=== PATIENT | male | born 1935 | race Caucasian/White ===

== ENCOUNTER 2017-01-15 07:35 | Day surgery (SDC) | payer OTHER ==
[2017-01-15] MEDS ORDERED: D5 LR 1000 ML 1,000 ML IV ONE (07:46)
[2017-01-15] MEDS ORDERED: DIPRIVAN VIAL 20 ML ONE (09:23)
[2017-01-15 10:07] VITALS: BP 123/67
== END 2017-01-15 09:05 | disposition home or self-care (01) ==
LOC: SURG1 07:35
PROVIDERS: ATTEND Internal Medicine Gastroenterology
PROC: 0DJD8ZZ Inspection of Lower Intestinal Tract, Via Natural or Artificial Opening Endoscopic (ICD-10-PCS; principal; 2017-01-15 07:30)
DX: K57.30 Diverticulosis of large intestine without perforation or abscess without bleeding (principal); K64.8 Other hemorrhoids; Z85.038 Personal history of other malignant neoplasm of large intestine; Z80.0 Family history of malignant neoplasm of digestive organs
CPT/HCPCS: 99100; A4217; J3490; J7120

== ENCOUNTER 2017-03-01 18:44 | Emergency (ER) | payer OTHER ==
[2017-03-01 18:59] VITALS: BMI 24.6
[2017-03-01 19:23] VITALS: BP 148/70
--- NOTE | 2017-03-01 19:29 | DR.GENAD ---
HPI - PCP Primary Care Physician: Vicente - HPI Comment HPI Comment: As below; he's used two enemas today without relief; no n/v; he's had persistent, intermittent problem with constipation since having partial colectomy years ago but usually resolves with enemas every 3 days or so. - Complaint/Symptoms Chief Complaint:: "I got constipation i got it so bad i just cant move it. Today is 4 days since I had a bowel movement. I hurt all in the lower part of my stomach." - Source History Provided: Patient - Mode of Arrival Mode of Arrival: Ambulatory - Timing Onset of Chief Complaint: 02/26/17 PMH - PMH Past Medical History: Yes Past Medical History: Anxiety, GERD Past Medical History Comment: chronic constipation Past Surgical History: Yes Surgical History: Appendectomy, Bowel Resection, Ortho Surgery Past Surgical History Comment: Stent x1 2016 - Family History History of Family Medical Conditions: No - Social History Alcohol Use: None Do you use any recreational Drugs:: No Lives With: Family Lives Where: Home - infectious screening Have you traveled outside the country in the last 6 months?: No ROS - Review of Systems Constitutional: No Symptoms Reported Respiratoy: No Symptoms Reported Cardiovascular: No Symptoms Reported Gastrointestinal/Abdominal: See HPI Genitourinary: No Symptoms Reported Neurological: No Symptoms Reported PE - Vital Signs Vitals: Temperature 97.9 F Pulse Rate 89 Respiratory Rate 18 Blood Pressure [Right Arm] 150/74 Blood Pressure [Left Arm] 116/70 Blood Pressure 148/70 O2 Sat by Pulse Oximetry 98 - General Limitations: No Limitations General Appearance: Alert, In No Apparent Distress - Neck Neck Exam: Normal Inspection - Chest Chest Inspection: Normal Inspection - Respiratory Respiratory Exam: Normal Lung Sounds Bilat Respiratory Exam: Bilateral Clear to Auscultation - Cardiovascular Cardiovascular Exam: Regular Rate, Normal Rhythm - Abdominal Exam Abdominal Exam: Soft, Tenderness (rlq/suprapubic region) Course - Reevaluation 1st: Improved (he had a large bm while in ER) ROR - XRAY XRAY Interpreted by: Radiologist (mod amt stool; no free air/dilated loops of ari) - Diagnosis Discharge Problem: Constipation Qualifiers: Constipation type: chronic idiopathic constipation Qualified Code(s): K59.04 - Chronic idiopathic constipation - Discharge Plan Disposition: 01 HOME, SELF-CARE Condition: Stable - Follow ups/Referrals Follow ups/Referrals: [facility],None [Primary Care Provider] - 3 days - Instructions Instructions: Constipation, Adult Additional Instructions: push fluids increase exercise
--- NOTE | 2017-03-01 20:03 | RAD ---
Acute abdomen series-three views with chest, supine and upright abdomen Indication: Abdominal pain and constipation. Comparison: July 19, 2015 CT. Findings: Chest radiograph shows cardiomegaly without other acute abnormality. Moderate gas is stool seen in the colon. No dilated loop of small bowel seen. Numerous clips project over the abdomen. Impression: Moderate stool in the colon suggests constipation without gross free air, pneumatosis or dilated loop of small bowel. THE AVAILABILITY OF THE REPORT AND FINDINGS WERE COMMUNICATED TO Dr. Seymour by Dr. Sterling on March 01, 2017 at 8:00 p.m. Reported By:
[2017-03-01] MEDS ORDERED: CITROMA PO ONE (20:12)
[2017-03-01] MEDS ORDERED: CITROMA ONE (20:15)
== END 2017-03-01 20:29 | disposition home or self-care (01) ==
LOC: ER 18:44
DX: K59.04 Chronic idiopathic constipation (principal)
CPT/HCPCS: 74022; 99282

== ENCOUNTER → 2017-09-22 | Outpatient (CLI) | payer OTHER ==
--- NOTE | 2017-09-22 17:18 | CT ---
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 COMPARISON: CT head 06/25/2016. TECHNIQUE: Multiple, non-contrasted axial CT images were obtained from the skull base to the cranial vertex. Coronal and sagittal reformats were performed. FINDINGS: There are no abnormal intra- or extra-axial fluid collections, midline shift, or mass effec t. Chen-white differentiation is normal. Partially empty sella. Global cortical involutional changes are present that are advanced for the patient's stated age. The ventricular system is enlarged but co mmensurate with the degree of sulcal prominence. Periventricular and supraventricular white matter hy podensity is present that is nonspecific in appearance, but most likely to represent microvascular is chemic changes. Atherosclerotic vascular calcification is present within the carotid siphons and dist al vertebral arteries. Imaged paranasal sinuses and mastoid air cells are clear. Debris in the tympanic cavities, likely cer umen. Bilateral lens implants. IMPRESSION: 1. No definite evidence of an acute intracranial process. If clinical concern persists for acute stro ke, consider MRI/MRA brain with contrast. 2. Moderate microvascular white matter ischemic changes, with associated volume loss. Reported By:
== END ==
LOC: RAD 16:34
PROVIDERS: ATTEND Internal Medicine
DX: R44.1 Visual hallucinations (principal); R41.82 Altered mental status, unspecified
CPT/HCPCS: 70450

== ENCOUNTER 2018-10-11 14:44 | Inpatient (IN) ==
[2018-10-11 15:30] VITALS: BMI 23.3
[2018-10-11] MEDS ORDERED: ZOFRAN INJ 4 MG VIAL IVP PRN (15:38)
[2018-10-11] MEDS ORDERED: NS 1/2 1000 ML IV 1,000 ML IV ONE (15:42)
[2018-10-11] MEDS: TYLENOL 325 MG TAB PO PRN ×2 (15:46→22:39)
[2018-10-11] MEDS: NS 1/2 1000 ML IV 1,000 ML IV SCH (15:46)
[2018-10-11] MEDS: FORTAZ or TAZICEF VIAL INJ IVP SCH ×2 (15:50→21:56)
[2018-10-11 16:02] LABS: BASOPHILS % (AUTO) 0.2 % (0.2-1.0); HEMATOCRIT 33.7 % (42.0-54.0); HEMOGLOBIN 11.5 g/dL (13.5-18.0); LYMPHOCYTES # (AUTO) 0.2 X10^3/uL (1.3-2.9); LYMPHOCYTES % (AUTO) 1.9 % (21.0-51.0); MEAN CORPUSCULAR HEMOGLOBIN 30.5 pg (27.0-34.0); MEAN CORPUSCULAR HGB CONC 34.2 g/dL (33.0-35.0); MEAN CORPUSCULAR VOLUME 89.1 fL (80.0-100.0); MEAN PLATELET VOLUME 8.3 fL (7.4-11.0); MONOCYTES # (AUTO) 0.7 x10^3/uL (0.3-0.8); MONOCYTES % (AUTO) 5.7 % (0.0-13.0); NEUTROPHILS # (AUTO) 11.6 x10^3/uL (2.2-4.8); NEUTROPHILS % (AUTO) 92.2 % (42.0-75.0); PLATELET COUNT 165 X10^3/uL (150.0-450.0); RED BLOOD COUNT 3.78 X10^6/uL (4.7-6.0); RED CELL DISTRIBUTION WIDTH 14.2 % (11.6-16.5); WHITE BLOOD COUNT 12.5 X10^3/uL (3.6-10.0)
[2018-10-11 16:14] LABS: ALANINE AMINOTRANSFERASE 23 Units/L (12-78); ALBUMIN 3.5 g/dL (3.4-5.0); ALKALINE PHOSPHATASE 77 Units/L (46-116); ASPARTATE AMINO TRANSFERASE 18 Units/L (15-37); BLOOD UREA NITROGEN 30 mg/dL (7-18); CALCIUM 8.8 mg/dL (8.5-10.1); CARBON DIOXIDE 22.9 mmol/L (21-32); CHLORIDE 98 mmol/L (98-107); COR NA(FOR HYPERGLY) 139 mmol/L (136-145); CREATININE 1.82 mg/dL (0.70-1.30); SODIUM 135 mmol/L (136-145); TOTAL PROTEIN 7.7 g/dL (6.4-8.2); eGFR NON BLACK RACES 38 (>60)
[2018-10-11] MEDS: DUONEB 0.5 MG/3 MG NEB SCH ×2 (16:20→20:22)
[2018-10-11 16:22] LABS: PLATELET MORPHOLOGY COMMENT NORMAL (NORMAL)
--- NOTE | 2018-10-11 16:26 | RAD ---
Chest PA and lateral Indication: Pneumonia Comparison: 07/18/2018 Findings: There is no pneumothorax or effusion. There is no consolidation. Heart size is enlarged. Impression: Cardiomegaly and chronic lung change without other acute chest process. Reported By:
[2018-10-11] MEDS ORDERED: SALINE 3% 15 ML NEB TX NEB ONE (16:39)
[2018-10-11] MEDS ORDERED: PULMICORT NEB TX 0.5 MG NEB SCH (21:00)
[2018-10-11] MEDS ORDERED: RESTORIL CAP 15 MG PO PRN (21:32)
[2018-10-11] MEDS ORDERED: NS 100 ML IV + SPIKE MINIBAG* 100 ML IV ONE (21:55)
[2018-10-12] MEDS: DUONEB 0.5 MG/3 MG NEB SCH ×7 (00:58→21:14)
[2018-10-12] MEDS: TYLENOL 325 MG TAB PO PRN ×2 (02:24→15:48)
[2018-10-12] MEDS ORDERED: NS 1/2 1000 ML IV 0 ML IV ONE (05:44)
[2018-10-12] MEDS ORDERED: NS 100 ML IV + SPIKE MINIBAG* 100 ML IV ONE (05:45)
[2018-10-12] MEDS: FORTAZ or TAZICEF VIAL INJ IVP SCH ×3 (05:51→21:38)
[2018-10-12] MEDS: NS 1/2 1000 ML IV 1,000 ML IV SCH ×3 (05:52→20:06)
[2018-10-12 06:20] LABS: BASOPHILS % (AUTO) 0.3 % (0.2-1.0); HEMOGLOBIN 9.8 g/dL (13.5-18.0); LYMPHOCYTES # (AUTO) 0.4 X10^3/uL (1.3-2.9); LYMPHOCYTES % (AUTO) 5.2 % (21.0-51.0); MEAN CORPUSCULAR VOLUME 88.7 fL (80.0-100.0); MEAN PLATELET VOLUME 8.6 fL (7.4-11.0); MONOCYTES # (AUTO) 0.8 x10^3/uL (0.3-0.8); MONOCYTES % (AUTO) 9.5 % (0.0-13.0); NEUTROPHILS # (AUTO) 6.9 x10^3/uL (2.2-4.8); PLATELET COUNT 133 X10^3/uL (150.0-450.0); RED BLOOD COUNT 3.16 X10^6/uL (4.7-6.0); RED CELL DISTRIBUTION WIDTH 14.4 % (11.6-16.5); WHITE BLOOD COUNT 8.1 X10^3/uL (3.6-10.0)
[2018-10-12 06:35] LABS: ALANINE AMINOTRANSFERASE 15 Units/L (12-78); ALBUMIN 2.8 g/dL (3.4-5.0); ALKALINE PHOSPHATASE 61 Units/L (46-116); ASPARTATE AMINO TRANSFERASE 18 Units/L (15-37); BLOOD UREA NITROGEN 24 mg/dL (7-18); CALCIUM 8.2 mg/dL (8.5-10.1); CARBON DIOXIDE 21.4 mmol/L (21-32); CHLORIDE 99 mmol/L (98-107); COR CA(FOR HYPOALB) 9.2 mg/dL (8.5-10.1); COR NA(FOR HYPERGLY) 137 mmol/L (136-145); CREATININE 1.43 mg/dL (0.70-1.30); SODIUM 133 mmol/L (136-145); TOTAL PROTEIN 6.5 g/dL (6.4-8.2); eGFR NON BLACK RACES 50 (>60)
--- NOTE | 2018-10-12 07:05 | RAD ---
HISTORY: Fever, shortness of breath Study: Chest AP portable Comparison: 10/11/2018, 07/18/2018 Findings: The heart is enlarged. No congestive heart failure is noted. The lungs are hypo inflated but free of acute alveolar infiltrates. Mild chronic lung changes are present. The bony thorax is unremarkable. IMPRESSION: Mild cardiomegaly without congestive heart failure Hypo inflation Mild chronic interstitial lung changes Reported By:
[2018-10-12] MEDS: PULMICORT NEB TX 0.5 MG NEB SCH ×2 (09:11→21:16)
[2018-10-12] MEDS: NORCO 7.5/325 MG TAB PO SCH ×3 (10:52→21:49)
[2018-10-12] MEDS ORDERED: TOPROL XL PO SCH (11:00)
[2018-10-12] MEDS ORDERED: PLAVIX PO SCH (11:00)
[2018-10-12] MEDS ORDERED: AMARYL TAB 4 MG PO SCH (11:00)
[2018-10-12] MEDS: HumuLIN R SUBCUT PRN ×3 (11:03→21:41)
[2018-10-12] MEDS: ATIVAN TAB 0.5 MG PO SCH ×2 (11:04→21:39)
[2018-10-12] MEDS: PROzac PO SCH (11:04)
[2018-10-12] MEDS: AMARYL TAB 4 MG PO SCH (11:16)
[2018-10-12] MEDS ORDERED: NexIUM PO SCH (13:00)
[2018-10-12] MEDS: NexIUM PO SCH (13:30)
[2018-10-12] MEDS ORDERED: NS 1/2 1000 ML IV 1,000 ML IV ONE ×2 (15:46→19:56)
[2018-10-12] MEDS: TORADOL 15 MG VIAL IVP PRN (17:32)
[2018-10-12] MEDS ORDERED: SNACK - Diabetic Appropriate PO SCH (20:00)
[2018-10-12] MEDS: SNACK - Diabetic Appropriate PO SCH (20:38)
[2018-10-12] MEDS ORDERED: MICRO K EXTEN CAP 10 MEQ PO PRN (20:53)
[2018-10-12] MEDS ORDERED: K-RIDER 10 MEQ/NS 100 ML 10 MEQ/100 ML BAG IV PRN (20:53)
[2018-10-12] MEDS ORDERED: KLOR-CON PO PRN (20:53)
[2018-10-12] MEDS ORDERED: POTASSIUM CHLORIDE LIQ 20 MEQ UDC PO PRN (20:53)
[2018-10-12] MEDS ORDERED: K-DUR TAB 20 MEQ PO PRN (20:53)
[2018-10-12] MEDS ORDERED: POTASSIUM CHL 60 MEQ/NS 0.45% 500 ML IV PRN (20:53)
[2018-10-12] MEDS ORDERED: POTASSIUM CHL 40 MEQ/NS 0.45% 500 ML IV PRN (20:53)
[2018-10-12] MEDS: PLAVIX PO SCH (21:38)
[2018-10-12] MEDS: MAGNESIUM SULFATE 1 GRAM/100 mL PREMIX 1 GM/100 ML BAG IV PRN ×2 (21:38→23:01)
[2018-10-12] MEDS: ZOCOR TAB 20 MG PO SCH (21:38)
[2018-10-12] MEDS: TOPROL XL PO SCH (21:40)
[2018-10-13] MEDS: DUONEB 0.5 MG/3 MG NEB SCH ×7 (01:21→20:26)
[2018-10-13] MEDS: MAGNESIUM SULFATE 1 GRAM/100 mL PREMIX 1 GM/100 ML BAG IV PRN ×2 (01:23→02:53)
[2018-10-13] MEDS: FORTAZ or TAZICEF VIAL INJ IVP SCH ×3 (06:02→21:12)
[2018-10-13] MEDS: NORCO 7.5/325 MG TAB PO SCH ×2 (06:21→13:44)
[2018-10-13 06:41] LABS: BASOPHILS % (AUTO) 0.3 % (0.2-1.0); EOSINOPHILS # (AUTO) 0.2 x10^3/uL (0.0-0.2); EOSINOPHILS % (AUTO) 2.3 % (0.9-2.9); HEMATOCRIT 32.8 % (42.0-54.0); HEMOGLOBIN 11.1 g/dL (13.5-18.0); LYMPHOCYTES # (AUTO) 0.6 X10^3/uL (1.3-2.9); LYMPHOCYTES % (AUTO) 8.6 % (21.0-51.0); MEAN CORPUSCULAR HEMOGLOBIN 30.3 pg (27.0-34.0); MEAN CORPUSCULAR HGB CONC 33.8 g/dL (33.0-35.0); MEAN CORPUSCULAR VOLUME 89.5 fL (80.0-100.0); MEAN PLATELET VOLUME 8.9 fL (7.4-11.0); MONOCYTES # (AUTO) 0.8 x10^3/uL (0.3-0.8); NEUTROPHILS # (AUTO) 5.1 x10^3/uL (2.2-4.8); NEUTROPHILS % (AUTO) 76.8 % (42.0-75.0); PLATELET COUNT 161 X10^3/uL (150.0-450.0); RED BLOOD COUNT 3.67 X10^6/uL (4.7-6.0); RED CELL DISTRIBUTION WIDTH 14.1 % (11.6-16.5); WHITE BLOOD COUNT 6.7 X10^3/uL (3.6-10.0)
[2018-10-13 07:05] LABS: ALANINE AMINOTRANSFERASE 24 Units/L (12-78); ALBUMIN 2.9 g/dL (3.4-5.0); ALKALINE PHOSPHATASE 71 Units/L (46-116); ASPARTATE AMINO TRANSFERASE 26 Units/L (15-37); BLOOD UREA NITROGEN 17 mg/dL (7-18); CALCIUM 8.4 mg/dL (8.5-10.1); CARBON DIOXIDE 24.1 mmol/L (21-32); CHLORIDE 99 mmol/L (98-107); COR CA(FOR HYPOALB) 9.3 mg/dL (8.5-10.1); COR NA(FOR HYPERGLY) 136 mmol/L (136-145); SODIUM 134 mmol/L (136-145); TOTAL PROTEIN 7.2 g/dL (6.4-8.2); eGFR NON BLACK RACES 56 (>60)
--- NOTE | 2018-10-13 07:17 | RAD ---
HISTORY: Shortness of breath Study: Chest AP portable Comparison: 10/12/2018 Findings: The heart remains enlarged. No congestive heart failure is noted. The lungs remain hypo inflated but free of acute infiltrates. Mild chronic lung changes are present. No pleural effusions are identified. The bony thorax is unremarkable. IMPRESSION: Mild cardiomegaly without congestive heart failure Hypo inflation Minimal chronic interstitial lung changes Reported By:
[2018-10-13] MEDS: TYLENOL 325 MG TAB PO PRN ×2 (08:25→21:08)
[2018-10-13] MEDS: PROzac PO SCH (08:36)
[2018-10-13] MEDS: NexIUM PO SCH (08:37)
[2018-10-13] MEDS: ATIVAN TAB 0.5 MG PO SCH ×2 (08:37→21:10)
[2018-10-13] MEDS: AMARYL TAB 4 MG PO SCH (08:37)
[2018-10-13] MEDS: PULMICORT NEB TX 0.5 MG NEB SCH ×2 (09:14→20:26)
[2018-10-13] MEDS: NS 1/2 1000 ML IV 1,000 ML IV SCH ×2 (11:38→13:49)
[2018-10-13] MEDS: HumuLIN R SUBCUT PRN ×2 (11:38→21:12)
[2018-10-13 12:09] LABS: BILIRUBIN,URINE NEGATIVE (NEGATIVE); BLOOD/HEMOGLOBIN,URINE 2+ (NEGATIVE); GLUCOSE, URINE 3+ (NEGATIVE); KETONES,URINE NEGATIVE (NEGATIVE); LEUKOCYTE ESTERASE ,URINE NEGATIVE (NEGATIVE); NITRITES,URINE NEGATIVE (NEGATIVE); PROTEIN,URINE 2+ (NEGATIVE); UROBILINOGEN,URINE NORMAL (NORMAL)
[2018-10-13 12:10] LABS: APPEARANCE,URINE CLEAR (CLEAR); COLOR,URINE YELLOW (YELLOW)
[2018-10-13 12:15] LABS: MUCUS,URINE FEW /HPF (NEGATIVE); RBC,URINE 0-2 /HPF (NONE SEEN)
[2018-10-13] MEDS ORDERED: NS 1/2 1000 ML IV 1,000 ML IV ONE (13:48)
--- NOTE | 2018-10-13 14:53 | RAD ---
History: Nausea and vomiting and fever Study: KUB Comparison: July 18, 2018 Findings: There are multiple surgical clips in the pelvis and in the right upper quadrant. The bowel gas pattern is unremarkable. No abnormal calcification is demonstrated. No acute bony abnormality is suggested. Impression: No acute disease demonstrated Reported By:
[2018-10-13] MEDS ORDERED: NS 100 ML IV + SPIKE MINIBAG* 100 ML IV ONE (21:00)
--- NOTE | 2018-10-13 21:00 | DR.UPDATE ---
H&P Update History and Physical Update: WAS SEEN IN THE OFFICE TODAY. A H&P WAS COMPLETED PRIOR TO ADMISSION. PATIENT HAS BEEN SEEN AND EXAMINED WITH NO CHANGES NOTED TO H&P. Changes noted: NO Yes with the following:
[2018-10-13] MEDS: TOPROL XL PO SCH (21:09)
[2018-10-13] MEDS: SNACK - Diabetic Appropriate PO SCH (21:10)
[2018-10-13] MEDS: PLAVIX PO SCH (21:11)
[2018-10-13] MEDS: ZOCOR TAB 20 MG PO SCH (21:11)
--- NOTE | 2018-10-13 21:27 | PCM.PROG ---
Progress Note - Progress Note for Day of Date of Exam: 10/12/18 - Subjective Subjective: WAS ADMITTED FOR FEVER, NAUSEA/VOMITING, AND ALTERED MENTAL STATUS. TODAY, HE IS ALERT AND ORIENTED, LYING IN BED ON MORNING ROUNDS. HE CONTINUES WITH COMPLAINTS OF NAUSEA AND WEAKNESS. HE HAS RAN A FEVER THROUGHOUT THE NIGHT. ON EXAMINATION, HEART IS REGULAR IN RATE AND RHYTHM. B ILATERAL LUNGS ARE NOTED WITH DIMINISHED LUNG SOUNDS THROUGHOUT. ABDOMEN IS ROUND, SOFT, AND NON-TENDER WITH NORMAL BOWEL SOUNDS NOTED IN ALL QUADRANTS. HIS VITALS THIS MORNING ARE 99.4-75-23-96%-130/58. LABS WERE OBTAINED. ABNORMAL LAB VALUES INCLUDE THE FOLLOWING: WBC 8.1, RBC 3.16, HGB 9.8, HCT 28.0, SODIUM 133, BUN 24, CREATININE 1.43, GLUCOSE 269, CALCIUM 8.2, MAGNESIUM 1.3, ALBUMIN 2.8. INFLUENZA ON ADMISSION NEGATIVE. BLOOD CULTURES ARE PENDING. A CHEST XRAY WAS OBTAINED TODAY AND REVEALED: Mild cardiomegaly without congestive heart failure. Hypo inflation. Mild chronic interstitial lung changes. HE IS CURRENTLY RECEIVING NORMAL SALINE AT 75ML/HR AND FORTAZ 1GM IV Q8H. HE IS ALSO RECEIVING RESPIRATORY TREATMENTS AND SUPPLEMENTAL OXYGEN FOR COMPLAINTS OF SHORTNESS OF BREATH. WE WILL CONTINUE WITH CURRENT PLAN OF CARE TODAY. OTHERWISE, WE WILL FOLLOW UP WITH AM LABS AND CONTINUE TO MONITOR. - Past Medical Family Social History Past Med/Fam/Surg Hx: No changes since H&P Allergies: Allergies Sulfa (Sulfonamide Antibiotics) [SULFA] Allergy (Verified 07/18/18 17:46) - Review of Systems ROS: No change since H&P - Vital Signs and I&O's Vital Signs: Temperature 99.1 F Pulse Rate 84 Respiratory Rate 23 Blood Pressure [Right Arm] 176/83 Blood Pressure [Left Arm] 191/85 Blood Pressure 137/74 O2 Sat by Pulse Oximetry 92 Intake and Output: Intake & Output 10/11/18 10/12/18 10/13/18 10/14/18 11:59 11:59 11:59 11:59 Intake Total 1131 / 1131 3080 / 3080 958 / 958 Output Total 900 / 900 1800 / 1800 275 / 275 Balance 231 / 231 1280 / 1280 683 / 683 - Physical Exam Oriented: Normal Eyes: Normal Ear: Normal Nose: Normal Throat: Normal Respiratory: Generalized, Diminished Cardiovascular: Normal. negative: S3, S4, Murmur : Normal Auscultation: Bowel Sounds: Normal Palpation: Normal Tenderness: Normal Skin: Normal Musculoskeletal: Normal Psychiatric: Normal Mood Description: Calm Affect: Normal Speech Pattern: Appropriate - Laboratory and Diagnostics Result Diagrams: 10/13/18 05:48 10/13/18 05:48 Labs: Laboratory WBC 6.7 X10^3/uL (3.6-10.0) 10/13/18 05:48 RBC 3.67 X10^6/uL (4.7-6.0) L 10/13/18 05:48 Hgb 11.1 g/dL (13.5-18.0) L 10/13/18 05:48 Hct 32.8 % (42.0-54.0) L 10/13/18 05:48 MCV 89.5 fL (80.0-100.0) 10/13/18 05:48 MCH 30.3 pg (27.0-34.0) 10/13/18 05:48 MCHC 33.8 g/dL (33.0-35.0) 10/13/18 05:48 RDW 14.1 % (11.6-16.5) 10/13/18 05:48 Plt Count 161 X10^3/uL (150.0-450.0) 10/13/18 05:48 Plt Count Comment Adequate (ADEQUATE) 10/11/18 15:43 MPV 8.9 fL (7.4-11.0) 10/13/18 05:48 Neut % (Auto) 76.8 % (42.0-75.0) H 10/13/18 05:48 Lymph % (Auto) 8.6 % (21.0-51.0) L 10/13/18 05:48 [place] % (Auto) 12.0 % (0.0-13.0) 10/13/18 05:48 Eos % (Auto) 2.3 % (0.9-2.9) 10/13/18 05:48 Baso % (Auto) 0.3 % (0.2-1.0) 10/13/18 05:48 Neut # (Auto) 5.1 x10^3/uL (2.2-4.8) H 10/13/18 05:48 Lymph # (Auto) 0.6 X10^3/uL (1.3-2.9) L 10/13/18 05:48 [place] # (Auto) 0.8 x10^3/uL (0.3-0.8) 10/13/18 05:48 Eos # (Auto) 0.2 x10^3/uL (0.0-0.2) 10/13/18 05:48 Baso # (Auto) 0.0 X10^3/uL (0.0-0.1) 10/13/18 05:48 Absolute Nucleated RBC 0.0 /100WBC 10/13/18 05:48 Total Counted 100 10/11/18 15:43 Neutrophils % (Manual) 98 % (39-76) H 10/11/18 15:43 Lymphocytes % (Manual) 2 % (13-43) L 10/11/18 15:43 Plt Morphology Comment Normal (NORMAL) 10/11/18 15:43 RBC Morphology Normal (NORMAL) 10/11/18 15:43 Sodium 134 mmol/L (136-145) L 10/13/18 05:48 Corrected Sodium 136 mmol/L (136-145) 10/13/18 05:48 Potassium 4.1 mmol/L (3.5-5.1) 10/13/18 05:48 Chloride 99 mmol/L (98-107) 10/13/18 05:48 Carbon Dioxide 24.1 mmol/L (21-32) 10/13/18 05:48 BUN 17 mg/dL (7-18) 10/13/18 05:48 Creatinine 1.30 mg/dL (0.70-1.30) 10/13/18 05:48 Est GFR (MDRD) Af Amer > 60 (>60) 10/13/18 05:48 Est GFR (MDRD) Non-Af 56 (>60) L 10/13/18 05:48 Glucose 182 mg/dL (65-99) H 10/13/18 05:48 POC Glucose (mg/dL) 188 mg/dL (65-99) H 10/13/18 20:46 Calcium 8.4 mg/dL (8.5-10.1) L 10/13/18 05:48 Corrected Calcium 9.3 mg/dL (8.5-10.1) 10/13/18 05:48 Magnesium 2.8 mg/dL (1.7-2.9) 10/13/18 05:48 Total Bilirubin 0.30 mg/dL (0.2-1.0) 10/13/18 05:48 AST 26 Units/L (15-37) 10/13/18 05:48 ALT 24 Units/L (12-78) 10/13/18 05:48 Alkaline Phosphatase 71 Units/L (46-116) 10/13/18 05:48 Total Protein 7.2 g/dL (6.4-8.2) 10/13/18 05:48 Albumin 2.9 g/dL (3.4-5.0) L 10/13/18 05:48 Globulin 4.3 g/dL (2.5-4.5) 10/13/18 05:48 Albumin/Globulin Ratio 0.7 Ratio (1.1-2.1) L 10/13/18 05:48 Specimen Type Clean catch urine 10/13/18 11:56 Urine Color Yellow (YELLOW) 10/13/18 11:56 Urine Appearance Clear (CLEAR) 10/13/18 11:56 Urine pH 6.0 (5.0 - 8.0) 10/13/18 11:56 Ur Specific [place] 1.010 (1.000-1.030) 10/13/18 11:56 Urine Protein 2+ (NEGATIVE) 10/13/18 11:56 Urine Glucose (UA) 3+ (NEGATIVE) 10/13/18 11:56 Urine Ketones Negative (NEGATIVE) 10/13/18 11:56 Urine Occult Blood 2+ (NEGATIVE) 10/13/18 11:56 Urine Nitrite Negative (NEGATIVE) 10/13/18 11:56 Urine Bilirubin Negative (NEGATIVE) 10/13/18 11:56 Urine Urobilinogen Normal (NORMAL) 10/13/18 11:56 Ur Leukocyte Esterase Negative (NEGATIVE) 10/13/18 11:56 Urine RBC 0-2 /HPF (NONE SEEN) 10/13/18 11:56 Urine WBC Not Reportable 10/13/18 11:56 Ur Squamous Epith Cells Not Reportable 10/13/18 11:56 Urine Bacteria Not Reportable 10/13/18 11:56 Urine Mucus Few /HPF (NEGATIVE) 10/13/18 11:56 Ur Culture Indicated? No/not indicated 10/13/18 11:56 Influenza Type A (PCR) Negative (NEGATIVE) 10/11/18 15:45 Influenza Type B (PCR) Negative (NEGATIVE) 10/11/18 15:45 - Plan (1) Fever Status: Acute Qualifiers: Fever type: unspecified Qualified Code(s): R50.9 - Fever, unspecified Plan: IV ANTIBIOTICS, TYLENOL, BLOOD CULTURES, CONTINUE TO MONITOR (2) Generalized weakness Status: Acute (3) Shortness of breath Status: Acute Plan: RESPIRATORY TX, SUPPLEMENTAL OXYGEN, CONTINUE TO MONITOR (4) Altered mental status Status: Acute Qualifiers: Altered mental status type: transient alteration of awareness Qualified Code(s): R40.4 - Transient alteration of awareness (5) Nausea & vomiting Status: Acute Qualifiers: Vomiting type: unspecified Vomiting Intractability: non-intractable Qualified Code(s): R11.2 - Nausea with vomiting, unspecified Plan: ZOFRAN 4MG IV Q4H PRN, CONTINUE TO MONITOR
[2018-10-14] MEDS: TORADOL 15 MG VIAL IVP PRN (00:24)
[2018-10-14] MEDS: NORCO 7.5/325 MG TAB PO SCH ×4 (00:25→21:09)
[2018-10-14] MEDS: NS 1/2 1000 ML IV 1,000 ML IV SCH ×2 (00:25→14:27)
[2018-10-14] MEDS: DUONEB 0.5 MG/3 MG NEB SCH ×6 (01:20→20:31)
[2018-10-14] MEDS: FORTAZ or TAZICEF VIAL INJ IVP SCH ×3 (06:24→21:04)
[2018-10-14 06:39] LABS: BASOPHILS % (AUTO) 0.6 % (0.2-1.0); EOSINOPHILS # (AUTO) 0.2 x10^3/uL (0.0-0.2); EOSINOPHILS % (AUTO) 3.7 % (0.9-2.9); HEMATOCRIT 29.9 % (42.0-54.0); HEMOGLOBIN 10.3 g/dL (13.5-18.0); LYMPHOCYTES # (AUTO) 0.7 X10^3/uL (1.3-2.9); LYMPHOCYTES % (AUTO) 13.1 % (21.0-51.0); MEAN CORPUSCULAR HEMOGLOBIN 30.4 pg (27.0-34.0); MEAN CORPUSCULAR HGB CONC 34.4 g/dL (33.0-35.0); MEAN CORPUSCULAR VOLUME 88.6 fL (80.0-100.0); MEAN PLATELET VOLUME 8.7 fL (7.4-11.0); MONOCYTES # (AUTO) 0.7 x10^3/uL (0.3-0.8); MONOCYTES % (AUTO) 12.9 % (0.0-13.0); NEUTROPHILS # (AUTO) 3.6 x10^3/uL (2.2-4.8); NEUTROPHILS % (AUTO) 69.7 % (42.0-75.0); PLATELET COUNT 168 X10^3/uL (150.0-450.0); RED BLOOD COUNT 3.37 X10^6/uL (4.7-6.0); RED CELL DISTRIBUTION WIDTH 14.3 % (11.6-16.5); WHITE BLOOD COUNT 5.1 X10^3/uL (3.6-10.0)
[2018-10-14 06:48] LABS: ALANINE AMINOTRANSFERASE 26 Units/L (12-78); ALBUMIN 2.9 g/dL (3.4-5.0); ALKALINE PHOSPHATASE 67 Units/L (46-116); ASPARTATE AMINO TRANSFERASE 26 Units/L (15-37); BLOOD UREA NITROGEN 15 mg/dL (7-18); CALCIUM 8.7 mg/dL (8.5-10.1); CARBON DIOXIDE 22.8 mmol/L (21-32); CHLORIDE 102 mmol/L (98-107); COR CA(FOR HYPOALB) 9.6 mg/dL (8.5-10.1); COR NA(FOR HYPERGLY) 138 mmol/L (136-145); CREATININE 1.27 mg/dL (0.70-1.30); SODIUM 137 mmol/L (136-145); eGFR NON BLACK RACES 57 (>60)
--- NOTE | 2018-10-14 06:50 | RAD ---
HISTORY: Shortness of breath Study: Chest AP portable Comparison: 10/13/2018 Findings: The heart remains enlarged. No congestive heart failure is noted. The aorta is calcified. The lungs are hypo inflated but free of acute infiltrates. No pleural effusions are identified. Bony thorax is unremarkable. IMPRESSION: Mild cardiomegaly without congestive heart failure Lungs mildly hypo inflated but clear Reported By:
--- NOTE | 2018-10-14 08:21 | PCM.PROG ---
Progress Note - Progress Note for Day of Date of Exam: 10/13/18 - Subjective Subjective: WAS ADMITTED FOR FEVER, NAUSEA/VOMITING, AND ALTERED MENTAL STATUS. TODAY, HE IS ALERT AND ORIENTED, LYING IN BED ON MORNING ROUNDS. HE CONTINUES WITH COMPLAINTS OF NAUSEA AND WEAKNESS. HE HAS CONTINUED WITH A FEVER THROUGHOUT THE NIGHT AND THIS MORNING. ON EXAMINATION, HEART IS REGULAR IN RATE AND RHYTHM. BILATERAL LUNGS ARE NOTED WITH DIMINISHED LUNG SOUNDS THROUGHOUT. ABDOMEN IS ROUND, SOFT, AND NON-TENDER WITH NORMAL BOWEL SOUNDS NOTED IN ALL QUADRANTS. HE DENIES A BOWEL MOVMENENT SINCE ADMISSION. HIS VITALS THIS MORNING ARE 101.5-84-20-92%-113/53. LABS WERE OBTAINED. ABNORMAL LAB VALUES INCLUDE THE FOLLOWING: RBC 3.67, HGB 11.1, HCT 32.8, SODIUM 134, GLUCOSE 182, CALCIUM 8.4, ALBUMIN 2.9. BLOOD CULTURES ARE PENDING, BUT LAB REPORTS CULTURES A POSITIVE GROWTH. A CHEST XRAY WAS OBTAINED TODAY AND REVEALED: Mild cardiomegaly without congestive heart failure. Hypo inflation. Minimal chronic interstitial lung changes. HE IS CURRENTLY RECEIVING NORMAL SALINE AT 75ML/HR AND FORTAZ 1GM IV Q8H. HE IS ALSO RECEIVING RESPIRATORY TREATMENTS AND SUPPLEMENTAL OXYGEN FOR COMPLAINTS OF SHORTNESS OF BREATH. WE WILL CONTINUE WITH CURRENT PLAN OF CARE TODAY AND OBTAIN A KUB AND URINALYSIS. OTHERWISE, WE WILL FOLLOW UP WITH AM LABS AND CONTINUE TO MONITOR. - Past Medical Family Social History Past Med/Fam/Surg Hx: No changes since H&P Allergies: Allergies Sulfa (Sulfonamide Antibiotics) [SULFA] Allergy (Verified 07/18/18 17:46) - Review of Systems ROS: No change since H&P - Vital Signs and I&O's Vital Signs: Temperature 98.5 F Pulse Rate 64 Respiratory Rate 14 Blood Pressure [Right Arm] 176/83 Blood Pressure [Left Arm] 191/85 Blood Pressure 104/53 O2 Sat by Pulse Oximetry 96 Intake and Output: Intake & Output 10/11/18 10/12/18 10/13/18 10/14/18 11:59 11:59 11:59 11:59 Intake Total 1131 / 1131 3080 / 3080 2858 / 2858 Output Total 900 / 900 1800 / 1800 875 / 875 Balance 231 / 231 1280 / 1280 1982 - Physical Exam Oriented: Normal Eyes: Normal Ear: Normal Nose: Normal Throat: Normal Respiratory: Generalized, Diminished Cardiovascular: Normal. negative: S3, S4, Murmur : Normal Auscultation: Bowel Sounds: Normal Tenderness: Normal Skin: Normal Musculoskeletal: Normal Psychiatric: Normal Mood Description: Calm Affect: Normal Speech Pattern: Appropriate - Laboratory and Diagnostics Result Diagrams: 10/14/18 05:39 10/14/18 05:39 Labs: Laboratory WBC 5.1 X10^3/uL (3.6-10.0) 10/14/18 05:39 RBC 3.37 X10^6/uL (4.7-6.0) L 10/14/18 05:39 Hgb 10.3 g/dL (13.5-18.0) L 10/14/18 05:39 Hct 29.9 % (42.0-54.0) L 10/14/18 05:39 MCV 88.6 fL (80.0-100.0) 10/14/18 05:39 MCH 30.4 pg (27.0-34.0) 10/14/18 05:39 MCHC 34.4 g/dL (33.0-35.0) 10/14/18 05:39 RDW 14.3 % (11.6-16.5) 10/14/18 05:39 Plt Count 168 X10^3/uL (150.0-450.0) 10/14/18 05:39 Plt Count Comment Adequate (ADEQUATE) 10/11/18 15:43 MPV 8.7 fL (7.4-11.0) 10/14/18 05:39 Neut % (Auto) 69.7 % (42.0-75.0) 10/14/18 05:39 Lymph % (Auto) 13.1 % (21.0-51.0) L 10/14/18 05:39 [place] % (Auto) 12.9 % (0.0-13.0) 10/14/18 05:39 Eos % (Auto) 3.7 % (0.9-2.9) H 10/14/18 05:39 Baso % (Auto) 0.6 % (0.2-1.0) 10/14/18 05:39 Neut # (Auto) 3.6 x10^3/uL (2.2-4.8) 10/14/18 05:39 Lymph # (Auto) 0.7 X10^3/uL (1.3-2.9) L 10/14/18 05:39 [place] # (Auto) 0.7 x10^3/uL (0.3-0.8) 10/14/18 05:39 Eos # (Auto) 0.2 x10^3/uL (0.0-0.2) 10/14/18 05:39 Baso # (Auto) 0.0 X10^3/uL (0.0-0.1) 10/14/18 05:39 Absolute Nucleated RBC 0.0 /100WBC 10/14/18 05:39 Total Counted 100 10/11/18 15:43 Neutrophils % (Manual) 98 % (39-76) H 10/11/18 15:43 Lymphocytes % (Manual) 2 % (13-43) L 10/11/18 15:43 Plt Morphology Comment Normal (NORMAL) 10/11/18 15:43 RBC Morphology Normal (NORMAL) 10/11/18 15:43 Sodium 137 mmol/L (136-145) 10/14/18 05:39 Corrected Sodium 138 mmol/L (136-145) 10/14/18 05:39 Potassium 4.0 mmol/L (3.5-5.1) 10/14/18 05:39 Chloride 102 mmol/L (98-107) 10/14/18 05:39 Carbon Dioxide 22.8 mmol/L (21-32) 10/14/18 05:39 BUN 15 mg/dL (7-18) 10/14/18 05:39 Creatinine 1.27 mg/dL (0.70-1.30) 10/14/18 05:39 Est GFR (MDRD) Af Amer > 60 (>60) 10/14/18 05:39 Est GFR (MDRD) Non-Af 57 (>60) L 10/14/18 05:39 Glucose 130 mg/dL (65-99) H 10/14/18 05:39 POC Glucose (mg/dL) 135 mg/dL (65-99) H 10/14/18 05:41 Calcium 8.7 mg/dL (8.5-10.1) 10/14/18 05:39 Corrected Calcium 9.6 mg/dL (8.5-10.1) 10/14/18 05:39 Magnesium 2.8 mg/dL (1.7-2.9) 10/13/18 05:48 Total Bilirubin 0.40 mg/dL (0.2-1.0) 10/14/18 05:39 AST 26 Units/L (15-37) 10/14/18 05:39 ALT 26 Units/L (12-78) 10/14/18 05:39 Alkaline Phosphatase 67 Units/L (46-116) 10/14/18 05:39 Total Protein 7.0 g/dL (6.4-8.2) 10/14/18 05:39 Albumin 2.9 g/dL (3.4-5.0) L 10/14/18 05:39 Globulin 4.1 g/dL (2.5-4.5) 10/14/18 05:39 Albumin/Globulin Ratio 0.7 Ratio (1.1-2.1) L 10/14/18 05:39 Specimen Type Clean catch urine 10/13/18 11:56 Urine Color Yellow (YELLOW) 10/13/18 11:56 Urine Appearance Clear (CLEAR) 10/13/18 11:56 Urine pH 6.0 (5.0 - 8.0) 10/13/18 11:56 Ur Specific [place] 1.010 (1.000-1.030) 10/13/18 11:56 Urine Protein 2+ (NEGATIVE) 10/13/18 11:56 Urine Glucose (UA) 3+ (NEGATIVE) 10/13/18 11:56 Urine Ketones Negative (NEGATIVE) 10/13/18 11:56 Urine Occult Blood 2+ (NEGATIVE) 10/13/18 11:56 Urine Nitrite Negative (NEGATIVE) 10/13/18 11:56 Urine Bilirubin Negative (NEGATIVE) 10/13/18 11:56 Urine Urobilinogen Normal (NORMAL) 10/13/18 11:56 Ur Leukocyte Esterase Negative (NEGATIVE) 10/13/18 11:56 Urine RBC 0-2 /HPF (NONE SEEN) 10/13/18 11:56 Urine WBC Not Reportable 10/13/18 11:56 Ur Squamous Epith Cells Not Reportable 10/13/18 11:56 Urine Bacteria Not Reportable 10/13/18 11:56 Urine Mucus Few /HPF (NEGATIVE) 10/13/18 11:56 Ur Culture Indicated? No/not indicated 10/13/18 11:56 Influenza Type A (PCR) Negative (NEGATIVE) 10/11/18 15:45 Influenza Type B (PCR) Negative (NEGATIVE) 10/11/18 15:45 - Plan (1) Fever Status: Acute Qualifiers: Fever type: unspecified Qualified Code(s): R50.9 - Fever, unspecified Plan: IV ANTIBIOTICS, TYLENOL, BLOOD CULTURES, CONTINUE TO MONITOR (2) Generalized weakness Status: Acute (3) Shortness of breath Status: Acute Plan: RESPIRATORY TX, SUPPLEMENTAL OXYGEN, CONTINUE TO MONITOR (4) Altered mental status Status: Acute Qualifiers: Altered mental status type: transient alteration of awareness Qualified Code(s): R40.4 - Transient alteration of awareness (5) Nausea & vomiting Status: Acute Qualifiers: Vomiting type: unspecified Vomiting Intractability: non-intractable Qualified Code(s): R11.2 - Nausea with vomiting, unspecified Plan: ZOFRAN 4MG IV Q4H PRN, CONTINUE TO MONITOR
[2018-10-14] MEDS: PULMICORT NEB TX 0.5 MG NEB SCH ×2 (08:37→20:31)
[2018-10-14] MEDS: ATIVAN TAB 0.5 MG PO SCH ×2 (08:56→20:53)
[2018-10-14] MEDS: COLACE CAP 100 MG PO SCH ×3 (08:56→21:10)
[2018-10-14] MEDS: MILK OF MAGNESIA PO SCH ×3 (08:56→21:09)
[2018-10-14] MEDS: AMARYL TAB 4 MG PO SCH (08:56)
[2018-10-14] MEDS: PROzac PO SCH (08:56)
[2018-10-14] MEDS: NexIUM PO SCH (08:56)
--- NOTE | 2018-10-14 11:53 | CT ---
History: Confusion and altered mental status Study: CT head without contrast. Sagittal and coronal reformations were provided. Comparison: November 10, 2017. Findings: The ventricles and sulci are mildly enlarged diffusely, mostly compatible with patient's advanced age. There is no intracranial hemorrhage or mass or edema. There is mild periventricular white matter low attenuation. There is no subdural collection of fluid. The paranasal sinuses are clear and the calvarium appears intact. Impression: No acute intracranial disease demonstrated Reported By:
[2018-10-14] MEDS: HumuLIN R SUBCUT PRN (12:06)
[2018-10-14] MEDS: PLAVIX PO SCH ×2 (20:52→21:12)
[2018-10-14] MEDS: ZOCOR TAB 20 MG PO SCH (20:52)
[2018-10-14] MEDS: TOPROL XL PO SCH (20:53)
[2018-10-14] MEDS: PEPCID TAB 20 MG PO SCH (20:54)
[2018-10-14] MEDS: SNACK - Diabetic Appropriate PO SCH (21:07)
--- NOTE | 2018-10-14 21:27 | PCM.PROG ---
Progress Note - Progress Note for Day of Date of Exam: 10/14/18 - Subjective Subjective: WAS ADMITTED FOR FEVER, NAUSEA/VOMITING, AND ALTERED MENTAL STATUS. TODAY, HE IS ALERT AND ORIENTED, LYING IN BED ON MORNING ROUNDS. HE CONTINUES WITH COMPLAINTS OF NAUSEA AND WEAKNESS. HE HAS CONTINUED WITH A FEVER THROUGHOUT THE NIGHT. PATIENTS DAUGHTER AND STAFF REPORTS THAT HE HAS BEEN CONFUSED THROUGHOUT THE NIGHT. ON EXAMINATION, HEART IS REGULAR IN RATE AND RHYTHM. BILATERAL LUNGS ARE NOTED WITH DIMINISHED LUNG SOUNDS THROUGHOUT. ABDOMEN IS ROUND, SOFT, AND NON-TENDER WITH NORMAL BOWEL SOUNDS NOTED IN ALL QUADRANTS. VITALS THIS MORNING ARE 98.4-64-14-95%-104/53. LABS WERE OBTAINED. ABNORMAL LAB VALUES INCLUDE THE FOLLOWING: RBC 3.37, HGB 10.3, HCT 29.9, GLUCOSE 130, ALBUMIN 2.9. BLOOD CULTURES ARE PENDING, BUT LAB REPORTS CULTURES A GROWTH OF GRAM NEGATIVE RODS. A CHEST XRAY WAS OBTAINED TODAY AND REVEALED: Mild cardiomegaly without congestive heart failure. Lungs mildly hypo inflated but clear. A BRAIN CT WAS OBTAINED AND REVEALED: No acute intracranial disease demonstrated. HE IS CURRENTLY RECEIVING NORMAL SALINE AT 75ML/HR AND FORTAZ 1GM IV Q8H. HE IS ALSO RECEIVING RESPIRATORY TREATMENTS AND SUPPLEMENTAL OXYGEN FOR COMPLAINTS OF SHORTNESS OF BREATH. WE WILL CONTINUE WITH CURRENT PLAN OF CARE TODAY. OTHERWISE, WE WILL FOLLOW UP WITH AM LABS AND CONTINUE TO MONITOR. - Past Medical Family Social History Past Med/Fam/Surg Hx: No changes since H&P Allergies: Allergies Sulfa (Sulfonamide Antibiotics) [SULFA] Allergy (Verified 07/18/18 17:46) - Review of Systems ROS: No change since H&P - Vital Signs and I&O's Vital Signs: Temperature 99.8 F Pulse Rate 77 Respiratory Rate 30 Blood Pressure [Right Arm] 176/83 Blood Pressure [Left Arm] 191/85 Blood Pressure 124/60 O2 Sat by Pulse Oximetry 94 Intake and Output: Intake & Output 10/12/18 10/13/18 10/14/18 10/15/18 11:59 11:59 11:59 11:59 Intake Total 1131 / 1131 3080 / 3080 2858 / 2858 800 / 800 Output Total 900 / 900 1800 / 1800 875 / 875 Balance 231 / 231 1280 / 1280 1982 800 / 800 - Physical Exam Oriented: Normal Eyes: Normal Ear: Normal Nose: Normal Throat: Normal Respiratory: Generalized, Diminished Cardiovascular: Normal. negative: S3, S4, Murmur : Normal Auscultation: Bowel Sounds: Normal Tenderness: Normal Skin: Normal Musculoskeletal: Normal Psychiatric: Normal Mood Description: Calm Affect: Normal Speech Pattern: Appropriate - Laboratory and Diagnostics Result Diagrams: 10/14/18 05:39 10/14/18 05:39 Labs: 10/11/18 15:43 Blood Blood Culture - Preliminary 10/11/18 15:49 Blood Blood Culture - Preliminary Laboratory WBC 5.1 X10^3/uL (3.6-10.0) 10/14/18 05:39 RBC 3.37 X10^6/uL (4.7-6.0) L 10/14/18 05:39 Hgb 10.3 g/dL (13.5-18.0) L 10/14/18 05:39 Hct 29.9 % (42.0-54.0) L 10/14/18 05:39 MCV 88.6 fL (80.0-100.0) 10/14/18 05:39 MCH 30.4 pg (27.0-34.0) 10/14/18 05:39 MCHC 34.4 g/dL (33.0-35.0) 10/14/18 05:39 RDW 14.3 % (11.6-16.5) 10/14/18 05:39 Plt Count 168 X10^3/uL (150.0-450.0) 10/14/18 05:39 Plt Count Comment Adequate (ADEQUATE) 10/11/18 15:43 MPV 8.7 fL (7.4-11.0) 10/14/18 05:39 Neut % (Auto) 69.7 % (42.0-75.0) 10/14/18 05:39 Lymph % (Auto) 13.1 % (21.0-51.0) L 10/14/18 05:39 Carter % (Auto) 12.9 % (0.0-13.0) 10/14/18 05:39 Eos % (Auto) 3.7 % (0.9-2.9) H 10/14/18 05:39 Baso % (Auto) 0.6 % (0.2-1.0) 10/14/18 05:39 Neut # (Auto) 3.6 x10^3/uL (2.2-4.8) 10/14/18 05:39 Lymph # (Auto) 0.7 X10^3/uL (1.3-2.9) L 10/14/18 05:39 Carter # (Auto) 0.7 x10^3/uL (0.3-0.8) 10/14/18 05:39 Eos # (Auto) 0.2 x10^3/uL (0.0-0.2) 10/14/18 05:39 Baso # (Auto) 0.0 X10^3/uL (0.0-0.1) 10/14/18 05:39 Absolute Nucleated RBC 0.0 /100WBC 10/14/18 05:39 Total Counted 100 10/11/18 15:43 Neutrophils % (Manual) 98 % (39-76) H 10/11/18 15:43 Lymphocytes % (Manual) 2 % (13-43) L 10/11/18 15:43 Plt Morphology Comment Normal (NORMAL) 10/11/18 15:43 RBC Morphology Normal (NORMAL) 10/11/18 15:43 Sodium 137 mmol/L (136-145) 10/14/18 05:39 Corrected Sodium 138 mmol/L (136-145) 10/14/18 05:39 Potassium 4.0 mmol/L (3.5-5.1) 10/14/18 05:39 Chloride 102 mmol/L (98-107) 10/14/18 05:39 Carbon Dioxide 22.8 mmol/L (21-32) 10/14/18 05:39 BUN 15 mg/dL (7-18) 10/14/18 05:39 Creatinine 1.27 mg/dL (0.70-1.30) 10/14/18 05:39 Est GFR (MDRD) Af Amer > 60 (>60) 10/14/18 05:39 Est GFR (MDRD) Non-Af 57 (>60) L 10/14/18 05:39 Glucose 130 mg/dL (65-99) H 10/14/18 05:39 POC Glucose (mg/dL) 86 mg/dL (65-99) 10/14/18 16:27 Calcium 8.7 mg/dL (8.5-10.1) 10/14/18 05:39 Corrected Calcium 9.6 mg/dL (8.5-10.1) 10/14/18 05:39 Magnesium 2.8 mg/dL (1.7-2.9) 10/13/18 05:48 Total Bilirubin 0.40 mg/dL (0.2-1.0) 10/14/18 05:39 AST 26 Units/L (15-37) 10/14/18 05:39 ALT 26 Units/L (12-78) 10/14/18 05:39 Alkaline Phosphatase 67 Units/L (46-116) 10/14/18 05:39 Total Protein 7.0 g/dL (6.4-8.2) 10/14/18 05:39 Albumin 2.9 g/dL (3.4-5.0) L 10/14/18 05:39 Globulin 4.1 g/dL (2.5-4.5) 10/14/18 05:39 Albumin/Globulin Ratio 0.7 Ratio (1.1-2.1) L 10/14/18 05:39 Specimen Type Clean catch urine 10/13/18 11:56 Urine Color Yellow (YELLOW) 10/13/18 11:56 Urine Appearance Clear (CLEAR) 10/13/18 11:56 Urine pH 6.0 (5.0 - 8.0) 10/13/18 11:56 Ur Specific [place] 1.010 (1.000-1.030) 10/13/18 11:56 Urine Protein 2+ (NEGATIVE) 10/13/18 11:56 Urine Glucose (UA) 3+ (NEGATIVE) 10/13/18 11:56 Urine Ketones Negative (NEGATIVE) 10/13/18 11:56 Urine Occult Blood 2+ (NEGATIVE) 10/13/18 11:56 Urine Nitrite Negative (NEGATIVE) 10/13/18 11:56 Urine Bilirubin Negative (NEGATIVE) 10/13/18 11:56 Urine Urobilinogen Normal (NORMAL) 10/13/18 11:56 Ur Leukocyte Esterase Negative (NEGATIVE) 10/13/18 11:56 Urine RBC 0-2 /HPF (NONE SEEN) 10/13/18 11:56 Urine WBC Not Reportable 10/13/18 11:56 Ur Squamous Epith Cells Not Reportable 10/13/18 11:56 Urine Bacteria Not Reportable 10/13/18 11:56 Urine Mucus Few /HPF (NEGATIVE) 10/13/18 11:56 Ur Culture Indicated? No/not indicated 10/13/18 11:56 Influenza Type A (PCR) Negative (NEGATIVE) 10/11/18 15:45 Influenza Type B (PCR) Negative (NEGATIVE) 10/11/18 15:45 - Plan (1) Fever Status: Acute Qualifiers: Fever type: unspecified Qualified Code(s): R50.9 - Fever, unspecified Plan: IV ANTIBIOTICS, TYLENOL, BLOOD CULTURES, CONTINUE TO MONITOR (2) Generalized weakness Status: Acute (3) Shortness of breath Status: Acute Plan: RESPIRATORY TX, SUPPLEMENTAL OXYGEN, CONTINUE TO MONITOR (4) Altered mental status Status: Acute Qualifiers: Altered mental status type: transient alteration of awareness Qualified Code(s): R40.4 - Transient alteration of awareness (5) Nausea & vomiting Status: Acute Qualifiers: Vomiting type: unspecified Vomiting Intractability: non-intractable Qualified Code(s): R11.2 - Nausea with vomiting, unspecified Plan: ZOFRAN 4MG IV Q4H PRN, CONTINUE TO MONITOR
[2018-10-15] MEDS: DUONEB 0.5 MG/3 MG NEB SCH ×3 (04:47→08:25)
[2018-10-15] MEDS: NS 1/2 1000 ML IV 1,000 ML IV SCH ×2 (05:25→09:49)
[2018-10-15] MEDS: FORTAZ or TAZICEF VIAL INJ IVP SCH (05:31)
[2018-10-15] MEDS: NORCO 7.5/325 MG TAB PO SCH (05:33)
[2018-10-15 06:24] LABS: BASOPHILS % (AUTO) 0.5 % (0.2-1.0); EOSINOPHILS # (AUTO) 0.2 x10^3/uL (0.0-0.2); HEMATOCRIT 29.1 % (42.0-54.0); LYMPHOCYTES # (AUTO) 0.7 X10^3/uL (1.3-2.9); LYMPHOCYTES % (AUTO) 13.6 % (21.0-51.0); MEAN CORPUSCULAR HEMOGLOBIN 30.5 pg (27.0-34.0); MEAN CORPUSCULAR HGB CONC 34.4 g/dL (33.0-35.0); MEAN CORPUSCULAR VOLUME 88.7 fL (80.0-100.0); MONOCYTES # (AUTO) 0.7 x10^3/uL (0.3-0.8); MONOCYTES % (AUTO) 12.2 % (0.0-13.0); NEUTROPHILS # (AUTO) 3.7 x10^3/uL (2.2-4.8); NEUTROPHILS % (AUTO) 69.7 % (42.0-75.0); PLATELET COUNT 182 X10^3/uL (150.0-450.0); RED BLOOD COUNT 3.28 X10^6/uL (4.7-6.0); RED CELL DISTRIBUTION WIDTH 14.4 % (11.6-16.5); WHITE BLOOD COUNT 5.4 X10^3/uL (3.6-10.0)
[2018-10-15 06:43] LABS: ALANINE AMINOTRANSFERASE 33 Units/L (12-78); ALBUMIN 2.6 g/dL (3.4-5.0); ALKALINE PHOSPHATASE 63 Units/L (46-116); ASPARTATE AMINO TRANSFERASE 45 Units/L (15-37); BLOOD UREA NITROGEN 16 mg/dL (7-18); CALCIUM 8.8 mg/dL (8.5-10.1); CARBON DIOXIDE 21.7 mmol/L (21-32); CHLORIDE 103 mmol/L (98-107); COR CA(FOR HYPOALB) 9.9 mg/dL (8.5-10.1); COR NA(FOR HYPERGLY) 138 mmol/L (136-145); CREATININE 1.09 mg/dL (0.70-1.30); SODIUM 138 mmol/L (136-145); TOTAL PROTEIN 6.5 g/dL (6.4-8.2); eGFR NON BLACK RACES > 60 (>60)
[2018-10-15] MEDS: PULMICORT NEB TX 0.5 MG NEB SCH (08:25)
[2018-10-15] MEDS ORDERED: NS 1/2 1000 ML IV 1,000 ML IV ONE (09:44)
[2018-10-15] MEDS: COLACE CAP 100 MG PO SCH (09:50)
[2018-10-15] MEDS: PEPCID TAB 20 MG PO SCH (09:50)
[2018-10-15] MEDS: NexIUM PO SCH (09:50)
[2018-10-15] MEDS: MILK OF MAGNESIA PO SCH (09:50)
[2018-10-15] MEDS: PROzac PO SCH (09:50)
[2018-10-15] MEDS: AMARYL TAB 4 MG PO SCH (09:50)
[2018-10-15] MEDS: ATIVAN TAB 0.5 MG PO SCH (09:50)
[2018-10-15 11:29] VITALS: BP 107/57
--- NOTE | 2018-11-01 02:14 | DR.CARTERD ---
- Discharge Summary for: Discharge Summary for Date of:: 10/15/18 - Admission Date Date of Admission: 10/11/18 - Admission Diagnoses Admission Diagnosis: (1) Altered mental status (2) Fever (3) Generalized weakness (4) Shortness of breath (5) Nausea & vomiting - Discharge Date Discharge Date: 10/15/18 - Discharge Diagnoses Discharge Diagnosis: (1) Altered mental status (2) Fever (3) Generalized weakness (4) Shortness of breath (5) Nausea & vomiting - Hospital Course Hospital Course: DAY ONE, WAS ADMITTED FOR FEVER, NAUSEA/VOMITING, AND ALTERED MENTAL STATUS. WE CONTINUED TO MONITOR AND TREAT PATIENT. DAY TWO,TODAY, HE WAS ALERT AND ORIENTED, LYING IN BED ON MORNING ROUNDS. HE CONTINUED WITH COMPLAINTS OF NAUSEA AND WEAKNESS. HE HAS RAN A FEVER THROUGHOUT THE NIGHT. ON EXAMINATION, HEART WAS REGULAR IN RATE AND RHYTHM. BILATERAL LUNGS WERE NOTED WITH DIMINISHED LUNG SOUNDS THROUGHOUT. ABDOMEN WAS ROUND, SOFT, AND NON-TENDER WITH NORMAL BOWEL SOUNDS NOTED IN ALL QUADRANTS. HIS VITALS THIS MORNING WERE 99.4-75-23-96%-130/58. LABS WERE OBTAINED. ABNORMAL LAB VALUES INCLUDED THE FOLLOWING: WBC 8.1, RBC 3.16, HGB 9.8, HCT 28.0, SODIUM 133, BUN 24, CREATININE 1.43, GLUCOSE 269, CALCIUM 8.2, MAGNESIUM 1.3, ALBUMIN 2.8. INFLUENZA ON ADMISSION NEGATIVE. BLOOD CULTURES WERE PENDING. A CHEST XRAY WAS OBTAINED TODAY AND REVEALED: Mild cardiomegaly without congestive heart failure. Hypo inflation. Mild chronic interstitial lung changes. HE WAS RECEIVING NORMAL SALINE AT 75ML/HR AND FORTAZ 1GM IV Q8H. HE WAS ALSO RECEIVING RESPIRATORY TREATMENTS AND SUPPLEMENTAL OXYGEN FOR COMPLAINTS OF SHORTNESS OF BREATH. WE CONTINUED WITH CURRENT PLAN OF CARE TODAY. WE FOLLOWED UP WITH AM LABS AND CONTINUED TO MONITOR. DAY THREE, HE WAS ALERT AND ORIENTED, LYING IN BED ON MORNING ROUNDS. HE CONTINUED WITH COMPLAINTS OF NAUSEA AND WEAKNESS. HE HAS CONTINUED WITH A FEVER THROUGHOUT THE NIGHT AND THIS MORNING. ON EXAMINATION, HEART WAS REGULAR IN RATE AND RHYTHM. BILATERAL LUNGS WERE NOTED WITH DIMINISHED LUNG SOUNDS THROUGHOUT. ABDOMEN WAS ROUND, SOFT, AND NON-TENDER WITH NORMAL BOWEL SOUNDS NOTED IN ALL QUADRANTS. HE DENIED A BOWEL MOVMENENT SINCE ADMISSION. HIS VITALS THIS MORNING WERE 101.5-84-20-92%-113/53. LABS WERE OBTAINED. ABNORMAL LAB VALUES INCLUDED THE FOLLOWING: RBC 3.67, HGB 11.1, HCT 32.8, SODIUM 134, GLUCOSE 182, CALCIUM 8.4, ALBUMIN 2.9. BLOOD CULTURES ARE PENDING, BUT LAB REPORTS CULTURES A POSITIVE GROWTH. A CHEST XRAY WAS OBTAINED TODAY AND REVEALED: Mild cardiomegaly without congestive heart failure. Hypo inflation. Minimal chronic interstitial lung changes. HE WAS RECEIVING NORMAL SALINE AT 75ML/HR AND FORTAZ 1GM IV Q8H. HE WAS ALSO RECEIVING RESPIRATORY TREATMENTS AND SUPPLEMENTAL OXYGEN FOR COMPLAINTS OF SHORTNESS OF BREATH. WE CONTINUED WITH CURRENT PLAN OF CARE TODAY AND OBTAINED A KUB AND URINALYSIS. WE FOLLOWED UP WITH AM LABS AND CONTINUED TO MONITOR. DAY FOUR, HE WAS ALERT AND ORIENTED, LYING IN BED ON MORNING ROUNDS. HE CONTINUED WITH COMPLAINTS OF NAUSEA AND WEAKNESS. HE HAS CONTINUED WITH A FEVER THROUGHOUT THE NIGHT. PATIENTS DAUGHTER AND STAFF REPORTED THAT HE HAS BEEN CONFUSED THROUGHOUT THE NIGHT. ON EXAMINATION, HEART WAS REGULAR IN RATE AND RHYTHM. BILATERAL LUNGS WERE NOTED WITH DIMINISHED LUNG SOUNDS THROUGHOUT. ABDOMEN WAS ROUND, SOFT, AND NON-TENDER WITH NORMAL BOWEL SOUNDS NOTED IN ALL QUADRANTS. VITALS THIS MORNING ARE 98.4-64-14-95%-104/53. LABS WERE OBTAINED. ABNORMAL LAB VALUES INCLUDED THE FOLLOWING: RBC 3.37, HGB 10.3, HCT 29.9, GLUCOSE 130, ALBUMIN 2.9. BLOOD CULTURES WERE PENDING, BUT LAB REPORTS CULTURES A GROWTH OF GRAM NEGATIVE RODS. A CHEST XRAY WAS OBTAINED TODAY AND REVEALED: Mild cardiomegaly without congestive heart failure. Lungs mildly hypo inflated but clear. A BRAIN CT WAS OBTAINED AND REVEALED: No acute intracranial disease demonstrated. HE WAS RECEIVING NORMAL SALINE AT 75ML/HR AND FORTAZ 1GM IV Q8H. HE WAS ALSO RECEIVING RESPIRATORY TREATMENTS AND SUPPLEMENTAL OXYGEN FOR COMPLAINTS OF SHORTNESS OF BREATH. WE CONTINUED WITH CURRENT PLAN OF CARE TODAY. WE FOLLOWED UP WITH AM LABS AND CONTINUED TO MONITOR. DAY FIVE, PATIENT LYING IN BED ALERT AND ORIENTED ON MORNING ROUNDS. PATIENT WAS AFEBRILE THROUGHOUT LAST NIGHT. PATIENT VOICES ZERO COMPLAINTS THIS MORNING. NO SIGNS AND SYMPTOMS OF ACUTE DISTRESS WERE NOTED. LUNG SOUNDS NOTED TO BE CLEAR ON AUSCULTATION. LABS WERE WITHIN NORMAL RANGE FOR PATIENT. VITALS WERE STABLE. WE PLANNED FOR DISCHARGE. INSTRUCTIONS FOR MEDICATIONS AND FOLLOW UP WERE DISCUSSED WITH PATIENT AND FAMILY, BOTH VOICED UNDERSTANDING. PATIENT WAS DISCHARGED HOME IN STABLE CONDITION WITH FAMILY. - Discharge Medications Discharge Medications: Home Medication List fluoxetine 40 mg PO DAILY 10/11/18 [History] hydrocodone-acetaminophen 1 tab PO TID 10/11/18 [History] lorazepam 0.5 mg PO BID 10/11/18 [History] metoprolol succinate 25 mg PO DAILY 10/11/18 [History] olanzapine 2.5 mg PO BID 10/11/18 [History] esomeprazole magnesium [Nexium] 20 mg PO BID 10/12/18 [History] ciprofloxacin HCl 750 mg PO BID #28 tab 10/15/18 [Rx] hyoscyamine sulfate 15 ml PO TID PRN #90 ml 10/15/18 [Rx] ondansetron HCl [Zofran] 8 mg PO TID PRN #30 tab 10/15/18 [Rx] Prescriptions: ciprofloxacin HCl Julian Zhang hyoscyamine sulfate Julian Zhang ondansetron HCl [Zofran] Julian Zhang Ambulatory Orders glimepiride 2 mg PO DAILY 08/29/13 simvastatin 20 mg PO HS 08/02/15 clopidogrel [Plavix] 75 mg PO DAILY 01/15/17 - Discharge Disposition Discharge Disposition: PATIENT TO FOLLOW UP IN OUR OFFICE IN ONE WEEK.
== END 2018-10-15 12:00 | disposition home or self-care (01) | DRG 864 ==
LOC: ICU
PROVIDERS: ADMIT Internal Medicine; ATTEND Internal Medicine
DX: R41.82 Altered mental status, unspecified; E11.65 Type 2 diabetes mellitus with hyperglycemia; R26.89 Other abnormalities of gait and mobility; R06.02 Shortness of breath; R50.9 Fever, unspecified; I51.7 Cardiomegaly; R11.2 Nausea with vomiting, unspecified; R53.1 Weakness
CPT/HCPCS: 36415; 70450; 71010; 71020; 71045; 71046; 74000; 74018; 80053; 81001; 83735; 85025; 87040; 87077; 87186; 87502; 94640; 97110; 97162; A4222; G0378; J0713; J1815; J1885; J2405; J3475; J3490; J7050; J7620; J7626

== ENCOUNTER 2018-12-20 17:40 | Inpatient (IN) ==
[2018-12-20 18:24] LABS: BASOPHILS % (AUTO) 0.5 % (0.2-1.0); EOSINOPHILS # (AUTO) 0.1 x10^3/uL (0.0-0.2); EOSINOPHILS % (AUTO) 0.8 % (0.9-2.9); HEMOGLOBIN 13.3 g/dL (13.5-18.0); LYMPHOCYTES # (AUTO) 1.5 X10^3/uL (1.3-2.9); LYMPHOCYTES % (AUTO) 19.6 % (21.0-51.0); MEAN CORPUSCULAR HEMOGLOBIN 29.3 pg (27.0-34.0); MEAN CORPUSCULAR HGB CONC 34.1 g/dL (33.0-35.0); MEAN CORPUSCULAR VOLUME 86.1 fL (80.0-100.0); MEAN PLATELET VOLUME 7.6 fL (7.4-11.0); MONOCYTES # (AUTO) 0.6 x10^3/uL (0.3-0.8); MONOCYTES % (AUTO) 7.3 % (0.0-13.0); NEUTROPHILS # (AUTO) 5.6 x10^3/uL (2.2-4.8); NEUTROPHILS % (AUTO) 71.8 % (42.0-75.0); PLATELET COUNT 370 X10^3/uL (150.0-450.0); RED BLOOD COUNT 4.53 X10^6/uL (4.7-6.0); RED CELL DISTRIBUTION WIDTH 13.9 % (11.6-16.5); WHITE BLOOD COUNT 7.8 X10^3/uL (3.6-10.0)
[2018-12-20 18:37] LABS: ALANINE AMINOTRANSFERASE 27 Units/L (12-78); ALBUMIN 3.7 g/dL (3.4-5.0); ALKALINE PHOSPHATASE 91 Units/L (46-116); ASPARTATE AMINO TRANSFERASE 24 Units/L (15-37); BLOOD UREA NITROGEN 21 mg/dL (7-18); CALCIUM 9.9 mg/dL (8.5-10.1); CHLORIDE 98 mmol/L (98-107); COR NA(FOR HYPERGLY) 139 mmol/L (136-145); CREATININE 1.71 mg/dL (0.70-1.30); SODIUM 136 mmol/L (136-145); TOTAL PROTEIN 8.8 g/dL (6.4-8.2); eGFR NON BLACK RACES 41 (>60)
[2018-12-20] MEDS ORDERED: NS 1000 ML 1,000 ML ONE (18:39)
[2018-12-20] MEDS ORDERED: MVI INJ (ADULT) IV ONE (18:40)
[2018-12-20] MEDS: NS 1000 ML 1,000 ML with MVI INJ (ADULT) 1 ML IV SCH ×2 (18:42)
[2018-12-20 18:47] LABS: PLATELET MORPHOLOGY COMMENT NORMAL (NORMAL)
[2018-12-20 19:26] LABS: BAND NEUTROPHILS % 1 % (0-10)
--- NOTE | 2018-12-20 20:23 | RAD ---
History: Shortness of breath Technique: PA and lateral views of the chest Comparison: 10/14/2018 Findings: Lungs are clear. There are no focal airspace opacities. Britt and cardiomediastinal silhouette appear normal. No large pleural effusions are demonstrated. There is mild elevation of the right hemidiaphragm. This appears similar to that seen on prior exam. Impression: 1. No radiographic evidence of an acute cardiopulmonary process. No significant change prior exams. Reported By:
--- NOTE | 2018-12-20 20:31 | CT ---
History: Mental status change Exam: CT head without contrast Comparison: 10/14/2018 Technique: Routine transaxial images were obtained through the brain without contrast. Findings: The ventricles are mildly enlarged with diffuse mild prominence of the cortical sulci. No intracranial hemorrhage or edema is seen. There is no extra-axial fluid collection or mass. There is moderate periventricular low density bilaterally which is unchanged. The bones are intact. The midline structures are unremarkable. 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
[2018-12-20] MEDS: RESTORIL CAP 15 MG PO SCH (20:40)
[2018-12-20 21:19] LABS: BILIRUBIN,URINE NEGATIVE (NEGATIVE); BLOOD/HEMOGLOBIN,URINE 1+ (NEGATIVE); GLUCOSE, URINE 3+ (NEGATIVE); KETONES,URINE NEGATIVE (NEGATIVE); LEUKOCYTE ESTERASE ,URINE 2+ (NEGATIVE); NITRITES,URINE POSITIVE (NEGATIVE); PROTEIN,URINE 2+ (NEGATIVE); UROBILINOGEN,URINE NORMAL (NORMAL)
[2018-12-20 21:24] LABS: COLOR,URINE YELLOW (YELLOW)
[2018-12-20 21:25] LABS: APPEARANCE,URINE HAZY (CLEAR); RBC,URINE 0-2 /HPF (NONE SEEN)
[2018-12-20 21:26] LABS: BACTERIA,URINE 1+ /HPF (NEGATIVE); SQUAMOUS EPITHELIAL CELL,UR FEW /HPF (NEGATIVE)
[2018-12-20] MEDS: HumuLIN R SUBCUT PRN (21:30)
[2018-12-21] MEDS: NS 1000 ML 1,000 ML with MVI INJ (ADULT) 1 ML IV SCH ×8 (02:00→19:29)
[2018-12-21] MEDS ORDERED: NS 1/2 1000 ML IV 0 ML IV ONE (02:37)
[2018-12-21] MEDS ORDERED: NS 1000 ML 1,000 ML ONE (02:39)
[2018-12-21 05:28] LABS: BASOPHILS % (AUTO) 0.4 % (0.2-1.0); EOSINOPHILS # (AUTO) 0.1 x10^3/uL (0.0-0.2); EOSINOPHILS % (AUTO) 1.9 % (0.9-2.9); HEMATOCRIT 30.9 % (42.0-54.0); LYMPHOCYTES # (AUTO) 1.5 X10^3/uL (1.3-2.9); LYMPHOCYTES % (AUTO) 28.5 % (21.0-51.0); MEAN CORPUSCULAR HEMOGLOBIN 28.7 pg (27.0-34.0); MEAN CORPUSCULAR HGB CONC 33.2 g/dL (33.0-35.0); MEAN CORPUSCULAR VOLUME 86.4 fL (80.0-100.0); MONOCYTES # (AUTO) 0.6 x10^3/uL (0.3-0.8); MONOCYTES % (AUTO) 10.3 % (0.0-13.0); NEUTROPHILS # (AUTO) 3.1 x10^3/uL (2.2-4.8); NEUTROPHILS % (AUTO) 58.9 % (42.0-75.0); PLATELET COUNT 252 X10^3/uL (150.0-450.0); RED BLOOD COUNT 3.57 X10^6/uL (4.7-6.0); RED CELL DISTRIBUTION WIDTH 14.1 % (11.6-16.5); WHITE BLOOD COUNT 5.3 X10^3/uL (3.6-10.0)
[2018-12-21 05:36] LABS: BLOOD UREA NITROGEN 18 mg/dL (7-18); CALCIUM 8.3 mg/dL (8.5-10.1); CARBON DIOXIDE 26.7 mmol/L (21-32); CHLORIDE 104 mmol/L (98-107); COR NA(FOR HYPERGLY) 139 mmol/L (136-145); CREATININE 1.32 mg/dL (0.70-1.30); SODIUM 139 mmol/L (136-145); eGFR NON BLACK RACES 55 (>60)
[2018-12-21 06:12] LABS: BAND NEUTROPHILS % 2 % (0-10); HEMOGLOBIN 10.3 g/dL (13.5-18.0); PLATELET MORPHOLOGY COMMENT NORMAL (NORMAL)
[2018-12-21] MEDS ORDERED: ROCEPHIN VIAL 1 GRAM ONE (09:45)
[2018-12-21] MEDS: ROCEPHIN VIAL 1 GRAM IVP SCH (10:00)
[2018-12-21] MEDS: HumuLIN R SUBCUT PRN (11:23)
[2018-12-21 13:04] LABS: ALANINE AMINOTRANSFERASE 24 Units/L (12-78); ALBUMIN 2.8 g/dL (3.4-5.0); ALKALINE PHOSPHATASE 64 Units/L (46-116); ASPARTATE AMINO TRANSFERASE 24 Units/L (15-37); COR CA(FOR HYPOALB) 9.3 mg/dL (8.5-10.1); TOTAL PROTEIN 6.4 g/dL (6.4-8.2)
--- NOTE | 2018-12-21 13:07 | DR.UPDATE ---
H&P Update History and Physical Update: WAS SEEN IN THE OFFICE YESTERDAY. A H&P WAS COMPLETED PRIOR TO ADMISSION. HE WAS ADMITTED FOR FURTHER EVALUATION AND TREATMENT OF WEAKNESS, UNSTEADY GAIT, AMS, INSOMNIA, NAUSEA, AND ABDOMINAL PAIN. ON ADMISSION, LABS WERE OBTAINED. ABNORMAL LAB VALUES INCLUDE THE FOLLOWING: RBC 4.53, HGB 13.3, HCT 39.0, BUN 21, CREATININE 1.71, GLUCOSE 209, TOTAL PROTEIN 8.8, GLOBULIN 5.1. URINALYSIS REVEALED WBC 5-10, RBC 0-2, LEUKOCYTES 2+, BACTERIA 1+. URINE CULTURE SET UP. BRAIN CT REVEALED: Diffuse mild atrophy and moderate chronic microischemic changes throughout the deep white matter which is unchanged with no acute abnormality seen. CHEST XRAY REVEALED: No radiographic evidence of an acute cardiopulmonary process. No significant change prior exams. HE WAS STARTED ON NORMAL SALINE WITH MVI, ROCEPHIN 1GM IV DAILY, AND TEMAZEPAM 15MG PO HS. WE PLAN TO FOLLOW UP WITH AM LABS AND CONTINUE TO MONITOR. Changes noted: NO Yes with the following:
--- NOTE | 2018-12-21 14:20 | PCM.PROG ---
Progress Note - Progress Note for Day of Date of Exam: 12/21/18 - Subjective Subjective: WAS ADMITTED FOR WEAKNESS, UNSTEADY GAIT, ALTERED MENTAL STATUS, NAUSEA, AND INSOMNIA. LABS ON ADMISSION REVEALED A UTI. HE WAS STARTED ON ROCEPHIN. HE CONTINUES WITH COMPLAINTS OF WEAKNESS AND UNSTEADY GAIT TODAY. HE ALSO REPORTS NAUSEA AND VOMITING. HE REPORTS THAT SYMPTOMS ARE WORSE AFTER EATING. HIS VITALS THIS MORNING ARE 99.0-78-20-93%-152/68. LABS WERE OBTAINED. ABNORMAL LAB VALUES INCLUDE THE FOLLOWING: RBC 3.57, HGB 10.3, HCT 30.9, CREATININE 1.32, GLUCOSE 113, CALCIUM 8.3, ALBUMIN 2.8. URINE CULTURE IS PENDING. TODAY, WE PLAN TO OBTAIN A GALLBLADDER ULTRASOUND AND WILL OBTAIN A HIDA SCAN IN THE MORNING. OTHERWISE, WE WILL CONTINUE WITH CURRENT PLAN OF CARE. WE PLAN TO FOLLOW UP WITH AM LABS AND CONTINUE TO MONITOR. - Past Medical Family Social History Past Med/Fam/Surg Hx: No changes since H&P Allergies: Allergies Sulfa (Sulfonamide Antibiotics) [SULFA] Allergy (Verified 10/20/18 17:57) - Review of Systems ROS: No change since H&P - Vital Signs and I&O's Vital Signs: Temperature 98.0 F Pulse Rate [Left Brachial] 67 Respiratory Rate 18 Blood Pressure [Right Arm] 130/60 Blood Pressure [Left Arm] 131/62 Blood Pressure 123/58 O2 Sat by Pulse Oximetry 96 Intake and Output: Intake & Output 12/19/18 12/20/18 12/21/18 12/22/18 11:59 11:59 11:59 11:59 Intake Total 1670 / 1670 1010 / 1010 Output Total 100 / 100 Balance 1570 / 1570 1010 / 1010 - Physical Exam Oriented: Normal Eyes: Normal Ear: Normal Nose: Normal Throat: Normal Respiratory: Generalized, Diminished Cardiovascular: Normal. negative: S3, Murmur, Edema : Normal Auscultation: Bowel Sounds: Normal Palpation: Normal Tenderness: RUQ, Mild. negative: Rebound, Guarding, Rigidity Skin: Normal Musculoskeletal: Normal Psychiatric: Normal Mood Description: Calm Affect: Normal Speech Pattern: Clear, Appropriate - Laboratory and Diagnostics Result Diagrams: 12/21/18 04:10 12/21/18 04:10 Labs: 12/20/18 21:12 Urine,Clean Catch Urine Culture - Preliminary Laboratory WBC 5.3 X10^3/uL (3.6-10.0) 12/21/18 04:10 RBC 3.57 X10^6/uL (4.7-6.0) L 12/21/18 04:10 Hgb 10.3 g/dL (13.5-18.0) L D 12/21/18 04:10 Hct 30.9 % (42.0-54.0) L 12/21/18 04:10 MCV 86.4 fL (80.0-100.0) 12/21/18 04:10 MCH 28.7 pg (27.0-34.0) 12/21/18 04:10 MCHC 33.2 g/dL (33.0-35.0) 12/21/18 04:10 RDW 14.1 % (11.6-16.5) 12/21/18 04:10 Plt Count 252 X10^3/uL (150.0-450.0) 12/21/18 04:10 Plt Count Comment Adequate (ADEQUATE) 12/21/18 04:10 MPV 8.0 fL (7.4-11.0) 12/21/18 04:10 Neut % (Auto) 58.9 % (42.0-75.0) 12/21/18 04:10 Lymph % (Auto) 28.5 % (21.0-51.0) 12/21/18 04:10 Lyman % (Auto) 10.3 % (0.0-13.0) 12/21/18 04:10 Eos % (Auto) 1.9 % (0.9-2.9) 12/21/18 04:10 Baso % (Auto) 0.4 % (0.2-1.0) 12/21/18 04:10 Neut # (Auto) 3.1 x10^3/uL (2.2-4.8) 12/21/18 04:10 Lymph # (Auto) 1.5 X10^3/uL (1.3-2.9) 12/21/18 04:10 Lyman # (Auto) 0.6 x10^3/uL (0.3-0.8) 12/21/18 04:10 Eos # (Auto) 0.1 x10^3/uL (0.0-0.2) 12/21/18 04:10 Baso # (Auto) 0.0 X10^3/uL (0.0-0.1) 12/21/18 04:10 Absolute Nucleated RBC 0.0 /100WBC 12/21/18 04:10 Total Counted 100 12/21/18 04:10 Neutrophils % (Manual) 57 % (39-76) 12/21/18 04:10 Band Neutrophils % 2 % (0-10) 12/21/18 04:10 Lymphocytes % (Manual) 25 % (13-43) 12/21/18 04:10 Monocytes % (Manual) 14 % (4-9) H 12/21/18 04:10 Eosinophils % (Manual) 2 % (0-6) 12/21/18 04:10 Plt Morphology Comment Normal (NORMAL) 12/21/18 04:10 RBC Morphology Normal (NORMAL) 12/21/18 04:10 Sodium 139 mmol/L (136-145) 12/21/18 04:10 Corrected Sodium 139 mmol/L (136-145) 12/21/18 04:10 Potassium 3.6 mmol/L (3.5-5.1) 12/21/18 04:10 Chloride 104 mmol/L (98-107) 12/21/18 04:10 Carbon Dioxide 26.7 mmol/L (21-32) 12/21/18 04:10 BUN 18 mg/dL (7-18) 12/21/18 04:10 Creatinine 1.32 mg/dL (0.70-1.30) H 12/21/18 04:10 Est GFR (MDRD) Af Amer > 60 (>60) 12/21/18 04:10 Est GFR (MDRD) Non-Af 55 (>60) L 12/21/18 04:10 Glucose 113 mg/dL (65-99) H 12/21/18 04:10 POC Glucose (mg/dL) 207 mg/dL (65-99) H 12/21/18 11:15 Calcium 8.3 mg/dL (8.5-10.1) L 12/21/18 04:10 Corrected Calcium 9.3 mg/dL (8.5-10.1) 12/21/18 04:10 Total Bilirubin 0.20 mg/dL (0.2-1.0) 12/21/18 04:10 AST 24 Units/L (15-37) 12/21/18 04:10 ALT 24 Units/L (12-78) 12/21/18 04:10 Alkaline Phosphatase 64 Units/L (46-116) 12/21/18 04:10 Total Protein 6.4 g/dL (6.4-8.2) 12/21/18 04:10 Albumin 2.8 g/dL (3.4-5.0) L 12/21/18 04:10 Globulin 3.6 g/dL (2.5-4.5) 12/21/18 04:10 Albumin/Globulin Ratio 0.8 Ratio (1.1-2.1) L 12/21/18 04:10 Specimen Type Clean catch urine 12/20/18 21:12 Urine Color Yellow (YELLOW) 12/20/18 21:12 Urine Appearance Hazy (CLEAR) 12/20/18 21:12 Urine pH 5.0 (5.0 - 8.0) 12/20/18 21:12 Ur Specific [place] 1.020 (1.000-1.030) 12/20/18 21:12 Urine Protein 2+ (NEGATIVE) 12/20/18 21:12 Urine Glucose (UA) 3+ (NEGATIVE) 12/20/18 21:12 Urine Ketones Negative (NEGATIVE) 12/20/18 21:12 Urine Occult Blood 1+ (NEGATIVE) 12/20/18 21:12 Urine Nitrite Positive (NEGATIVE) 12/20/18 21:12 Urine Bilirubin Negative (NEGATIVE) 12/20/18 21:12 Urine Urobilinogen Normal (NORMAL) 12/20/18 21:12 Ur Leukocyte Esterase 2+ (NEGATIVE) 12/20/18 21:12 Urine RBC 0-2 /HPF (NONE SEEN) 12/20/18 21:12 Urine WBC 5-10 /HPF (NONE SEEN) 12/20/18 21:12 Ur Squamous Epith Cells Few /HPF (NEGATIVE) 12/20/18 21:12 Urine Bacteria 1+ /HPF (NEGATIVE) 12/20/18 21:12 Ur Culture Indicated? Yes/culture set up 12/20/18 21:12 - Plan (1) Urinary tract infection Status: Acute Qualifiers: Urinary tract infection type: acute cystitis Hematuria presence: without hematuria Qualified Code(s): N30.00 - Acute cystitis without hematuria Plan: ROCEPHIN 1GM IV DAILY, CONTINUE TO MONITOR (2) Generalized weakness Status: Acute (3) Unsteady gait Status: Acute (4) Abdominal pain Status: Acute Qualifiers: Abdominal location: right upper quadrant Qualified Code(s): R10.11 - Right upper quadrant pain Plan: OBTAIN GB US AND HIDA SCAN, CONTINUE TO MONITOR (5) Altered mental status Status: Acute Qualifiers: Altered mental status type: transient alteration of awareness (6) Nausea & vomiting Status: Acute Qualifiers: Vomiting type: unspecified Vomiting Intractability: non-intractable Qualified Code(s): R11.2 - Nausea with vomiting, unspecified Plan: OBTAIN GB US AND HIDA SCAN, CONTINUE TO MONITOR
[2018-12-21] MEDS ORDERED: LEVSIN SYRUP PO PRN (14:21)
[2018-12-21] MEDS ORDERED: ZOFRAN INJ 4 MG VIAL IVP PRN (14:25)
[2018-12-21] MEDS ORDERED: GLUCOPHAGE ONE ×2 (16:06→20:27)
[2018-12-21] MEDS: GLUCOPHAGE PO SCH ×2 (16:08→20:53)
[2018-12-21] MEDS: TOPROL XL PO SCH (16:08)
[2018-12-21] MEDS: NORCO 7.5/325 MG TAB PO SCH ×2 (16:08→22:00)
[2018-12-21] MEDS: ATIVAN TAB 1 MG PO SCH ×3 (16:08→20:57)
[2018-12-21] MEDS: PROzac PO SCH (16:08)
[2018-12-21] MEDS: AMARYL TAB 4 MG PO SCH (16:09)
--- NOTE | 2018-12-21 16:37 | US ---
History: Abdominal pain Study: Ultrasound of the right upper quadrant of the abdomen Findings: The gallbladder is normal in size without wall thickening or stone or sludge. The common hepatic duct measures 2.3 mm diameter. The liver is normal in size without mass. There is normal echogenicity. There is appropriate flow in the hepatic and portal veins. The right kidney measures 10.87 cm sagittal length with cortical thickness of 1.1 cm. There is no right hydronephrosis or mass. The visualized pancreas is unremarkable. The IVC is patent. No free fluid is demonstrated. Impression: Negative Reported By:
[2018-12-21 17:52] VITALS: BMI 24.0
[2018-12-21] MEDS: RESTORIL CAP 15 MG PO SCH (20:51)
[2018-12-21] MEDS: ZOCOR TAB 20 MG PO SCH (20:53)
[2018-12-21] MEDS: SNACK - Diabetic Appropriate PO SCH (20:55)
[2018-12-22] MEDS: NS 1000 ML 1,000 ML with MVI INJ (ADULT) 1 ML IV SCH ×6 (04:00→22:25)
[2018-12-22 05:18] LABS: BASOPHILS % (AUTO) 0.5 % (0.2-1.0); EOSINOPHILS # (AUTO) 0.1 x10^3/uL (0.0-0.2); EOSINOPHILS % (AUTO) 2.4 % (0.9-2.9); HEMATOCRIT 28.6 % (42.0-54.0); HEMOGLOBIN 9.4 g/dL (13.5-18.0); LYMPHOCYTES # (AUTO) 1.6 X10^3/uL (1.3-2.9); LYMPHOCYTES % (AUTO) 28.5 % (21.0-51.0); MEAN CORPUSCULAR HEMOGLOBIN 28.8 pg (27.0-34.0); MEAN CORPUSCULAR VOLUME 87.1 fL (80.0-100.0); MEAN PLATELET VOLUME 7.8 fL (7.4-11.0); MONOCYTES # (AUTO) 0.6 x10^3/uL (0.3-0.8); MONOCYTES % (AUTO) 10.3 % (0.0-13.0); NEUTROPHILS # (AUTO) 3.2 x10^3/uL (2.2-4.8); NEUTROPHILS % (AUTO) 58.3 % (42.0-75.0); PLATELET COUNT 229 X10^3/uL (150.0-450.0); RED BLOOD COUNT 3.28 X10^6/uL (4.7-6.0); RED CELL DISTRIBUTION WIDTH 14.4 % (11.6-16.5); WHITE BLOOD COUNT 5.6 X10^3/uL (3.6-10.0)
[2018-12-22] MEDS: NORCO 7.5/325 MG TAB PO SCH ×3 (05:36→21:27)
[2018-12-22 05:41] LABS: ALANINE AMINOTRANSFERASE 22 Units/L (12-78); ALBUMIN 2.4 g/dL (3.4-5.0); ALKALINE PHOSPHATASE 55 Units/L (46-116); ASPARTATE AMINO TRANSFERASE 20 Units/L (15-37); BLOOD UREA NITROGEN 11 mg/dL (7-18); CARBON DIOXIDE 24.2 mmol/L (21-32); CHLORIDE 109 mmol/L (98-107); COR CA(FOR HYPOALB) 9.3 mg/dL (8.5-10.1); CREATININE 1.18 mg/dL (0.70-1.30); SODIUM 141 mmol/L (136-145); TOTAL PROTEIN 5.7 g/dL (6.4-8.2); eGFR NON BLACK RACES > 60 (>60)
[2018-12-22 05:46] LABS: BAND NEUTROPHILS % 4 % (0-10); PLATELET MORPHOLOGY COMMENT NORMAL (NORMAL)
[2018-12-22] MEDS ORDERED: GLUCOPHAGE ONE ×2 (08:33→20:14)
[2018-12-22] MEDS: ATIVAN TAB 1 MG PO SCH ×2 (09:06→21:28)
[2018-12-22] MEDS: GLUCOPHAGE PO SCH ×2 (09:07→21:28)
[2018-12-22] MEDS: TOPROL XL PO SCH (09:07)
[2018-12-22] MEDS: AMARYL TAB 4 MG PO SCH (09:07)
[2018-12-22] MEDS: PROzac PO SCH (09:08)
[2018-12-22] MEDS: ROCEPHIN VIAL 1 GRAM IVP SCH (09:08)
[2018-12-22] MEDS: SNACK - Diabetic Appropriate PO SCH (20:00)
[2018-12-22] MEDS: RESTORIL CAP 15 MG PO SCH (21:27)
[2018-12-22] MEDS: ZOCOR TAB 20 MG PO SCH (21:31)
[2018-12-23] MEDS: NS 1000 ML 1,000 ML with MVI INJ (ADULT) 1 ML IV SCH ×6 (02:00→21:05)
[2018-12-23] MEDS: ULTRAM PO PRN ×2 (04:01)
[2018-12-23 05:25] LABS: BASOPHILS % (AUTO) 0.6 % (0.2-1.0); EOSINOPHILS # (AUTO) 0.2 x10^3/uL (0.0-0.2); EOSINOPHILS % (AUTO) 3.4 % (0.9-2.9); HEMATOCRIT 28.4 % (42.0-54.0); HEMOGLOBIN 9.4 g/dL (13.5-18.0); LYMPHOCYTES # (AUTO) 1.5 X10^3/uL (1.3-2.9); LYMPHOCYTES % (AUTO) 27.1 % (21.0-51.0); MEAN CORPUSCULAR HEMOGLOBIN 28.7 pg (27.0-34.0); MEAN CORPUSCULAR HGB CONC 33.1 g/dL (33.0-35.0); MEAN CORPUSCULAR VOLUME 86.7 fL (80.0-100.0); MONOCYTES # (AUTO) 0.5 x10^3/uL (0.3-0.8); MONOCYTES % (AUTO) 8.4 % (0.0-13.0); NEUTROPHILS # (AUTO) 3.3 x10^3/uL (2.2-4.8); NEUTROPHILS % (AUTO) 60.5 % (42.0-75.0); PLATELET COUNT 195 X10^3/uL (150.0-450.0); RED BLOOD COUNT 3.27 X10^6/uL (4.7-6.0); RED CELL DISTRIBUTION WIDTH 14.4 % (11.6-16.5); WHITE BLOOD COUNT 5.5 X10^3/uL (3.6-10.0)
[2018-12-23 05:42] LABS: ALANINE AMINOTRANSFERASE 21 Units/L (12-78); ALBUMIN 2.4 g/dL (3.4-5.0); ALKALINE PHOSPHATASE 60 Units/L (46-116); ASPARTATE AMINO TRANSFERASE 17 Units/L (15-37); BLOOD UREA NITROGEN 10 mg/dL (7-18); CARBON DIOXIDE 23.2 mmol/L (21-32); CHLORIDE 110 mmol/L (98-107); COR CA(FOR HYPOALB) 9.3 mg/dL (8.5-10.1); COR NA(FOR HYPERGLY) 142 mmol/L (136-145); SODIUM 142 mmol/L (136-145); TOTAL PROTEIN 5.6 g/dL (6.4-8.2); eGFR NON BLACK RACES > 60 (>60)
[2018-12-23] MEDS: NORCO 7.5/325 MG TAB PO SCH ×3 (05:54→21:04)
--- NOTE | 2018-12-23 08:15 | PCM.PROG ---
Progress Note - Progress Note for Day of Date of Exam: 12/22/18 - Subjective Subjective: WAS ADMITTED FOR WEAKNESS, UNSTEADY GAIT, ALTERED MENTAL STATUS, NAUSEA, AND INSOMNIA. LABS ON ADMISSION REVEALED A UTI. HE WAS STARTED ON ROCEPHIN. HE CONTINUES WITH COMPLAINTS OF WEAKNESS AND UNSTEADY GAIT TODAY. HE ALSO REPORTS NAUSEA AND VOMITING. HE REPORTS THAT SYMPTOMS ARE WORSE AFTER EATING. HIS VITALS THIS MORNING ARE 97.7-64-17-96%-157/72. LABS WERE OBTAINED. ABNORMAL LAB VALUES INCLUDE THE FOLLOWING: RBC 3.28, HGB 9.4, HCT 28.6, CHLORIDE 109, CALCIUM 8.0, TOTAL PROTEIN 5.7, ALBUMIN 2.4. URINE CULTURE POSITIVE FOR GROWTH OF E.COLI. A GALLBALDDER ULTRASOUND WAS OBTAINED YESTERDAY AND WAS NEGATIVE. WE PLAN TO OBTAIN A HIDA SCAN TOMORROW MORNING. WE WILL D/C THE FELICIANO EPHIN AND START INVANZ 1GM IV DAILY TODAY. OTHERWISE, WE WILL CONTINUE WITH CURRENT PLAN OF CARE. WE PLAN TO FOLLOW UP WITH AM LABS AND CONTINUE TO MONITOR. - Past Medical Family Social History Past Med/Fam/Surg Hx: No changes since H&P Allergies: Allergies Sulfa (Sulfonamide Antibiotics) [SULFA] Allergy (Verified 10/20/18 17:57) - Review of Systems ROS: No change since H&P - Vital Signs and I&O's Vital Signs: Temperature 97.8 F Pulse Rate [Left Brachial] 65 Respiratory Rate 18 Blood Pressure [Right Arm] 169/74 Blood Pressure [Left Arm] 116/56 Blood Pressure 123/58 O2 Sat by Pulse Oximetry 94 Intake and Output: Intake & Output 12/20/18 12/21/18 12/22/18 12/23/18 11:59 11:59 11:59 11:59 Intake Total 1670 / 1670 3210 / 3210 2220 / 2220 Output Total 100 / 100 Balance 1570 / 1570 3210 / 3210 2219 / 2220 - Physical Exam Oriented: Normal Eyes: Normal Ear: Normal Nose: Normal Throat: Normal Respiratory: Generalized, Diminished Cardiovascular: Normal. negative: S3, Murmur, Edema : Normal Auscultation: Bowel Sounds: Normal Palpation: Normal Tenderness: RUQ, Mild. negative: Rebound, Guarding, Rigidity Skin: Normal Musculoskeletal: Normal Psychiatric: Normal Mood Description: Calm Affect: Normal Speech Pattern: Clear, Appropriate - Laboratory and Diagnostics Result Diagrams: 12/23/18 04:40 12/23/18 04:40 Labs: 12/20/18 21:12 Urine,Clean Catch Urine Culture - Final Escherichia Coli Laboratory WBC 5.5 X10^3/uL (3.6-10.0) 12/23/18 04:40 RBC 3.27 X10^6/uL (4.7-6.0) L 12/23/18 04:40 Hgb 9.4 g/dL (13.5-18.0) L 12/23/18 04:40 Hct 28.4 % (42.0-54.0) L 12/23/18 04:40 MCV 86.7 fL (80.0-100.0) 12/23/18 04:40 MCH 28.7 pg (27.0-34.0) 12/23/18 04:40 MCHC 33.1 g/dL (33.0-35.0) 12/23/18 04:40 RDW 14.4 % (11.6-16.5) 12/23/18 04:40 Plt Count 195 X10^3/uL (150.0-450.0) 12/23/18 04:40 Plt Count Comment Adequate (ADEQUATE) 12/22/18 04:35 MPV 8.0 fL (7.4-11.0) 12/23/18 04:40 Neut % (Auto) 60.5 % (42.0-75.0) 12/23/18 04:40 Lymph % (Auto) 27.1 % (21.0-51.0) 12/23/18 04:40 [place] % (Auto) 8.4 % (0.0-13.0) 12/23/18 04:40 Eos % (Auto) 3.4 % (0.9-2.9) H 12/23/18 04:40 Baso % (Auto) 0.6 % (0.2-1.0) 12/23/18 04:40 Neut # (Auto) 3.3 x10^3/uL (2.2-4.8) 12/23/18 04:40 Lymph # (Auto) 1.5 X10^3/uL (1.3-2.9) 12/23/18 04:40 [place] # (Auto) 0.5 x10^3/uL (0.3-0.8) 12/23/18 04:40 Eos # (Auto) 0.2 x10^3/uL (0.0-0.2) 12/23/18 04:40 Baso # (Auto) 0.0 X10^3/uL (0.0-0.1) 12/23/18 04:40 Absolute Nucleated RBC 0.0 /100WBC 12/23/18 04:40 Total Counted 100 12/22/18 04:35 Neutrophils % (Manual) 59 % (39-76) 12/22/18 04:35 Band Neutrophils % 4 % (0-10) 12/22/18 04:35 Lymphocytes % (Manual) 28 % (13-43) 12/22/18 04:35 Monocytes % (Manual) 6 % (4-9) 12/22/18 04:35 Eosinophils % (Manual) 3 % (0-6) 12/22/18 04:35 Plt Morphology Comment Normal (NORMAL) 12/22/18 04:35 RBC Morphology Normal (NORMAL) 12/22/18 04:35 Sodium 142 mmol/L (136-145) 12/23/18 04:40 Corrected Sodium 142 mmol/L (136-145) 12/23/18 04:40 Potassium 3.8 mmol/L (3.5-5.1) 12/23/18 04:40 Chloride 110 mmol/L (98-107) H 12/23/18 04:40 Carbon Dioxide 23.2 mmol/L (21-32) 12/23/18 04:40 BUN 10 mg/dL (7-18) 12/23/18 04:40 Creatinine 1.20 mg/dL (0.70-1.30) 12/23/18 04:40 Est GFR (MDRD) Af Amer > 60 (>60) 12/23/18 04:40 Est GFR (MDRD) Non-Af > 60 (>60) 12/23/18 04:40 Glucose 113 mg/dL (65-99) H 12/23/18 04:40 POC Glucose (mg/dL) 111 mg/dL (65-99) H 12/23/18 05:41 Calcium 8.0 mg/dL (8.5-10.1) L 12/23/18 04:40 Corrected Calcium 9.3 mg/dL (8.5-10.1) 12/23/18 04:40 Total Bilirubin 0.20 mg/dL (0.2-1.0) 12/23/18 04:40 AST 17 Units/L (15-37) 12/23/18 04:40 ALT 21 Units/L (12-78) 12/23/18 04:40 Alkaline Phosphatase 60 Units/L (46-116) 12/23/18 04:40 Total Protein 5.6 g/dL (6.4-8.2) L 12/23/18 04:40 Albumin 2.4 g/dL (3.4-5.0) L 12/23/18 04:40 Globulin 3.2 g/dL (2.5-4.5) 12/23/18 04:40 Albumin/Globulin Ratio 0.8 Ratio (1.1-2.1) L 12/23/18 04:40 Specimen Type Clean catch urine 12/20/18 21:12 Urine Color Yellow (YELLOW) 12/20/18 21:12 Urine Appearance Hazy (CLEAR) 12/20/18 21:12 Urine pH 5.0 (5.0 - 8.0) 12/20/18 21:12 Ur Specific [place] 1.020 (1.000-1.030) 12/20/18 21:12 Urine Protein 2+ (NEGATIVE) 12/20/18 21:12 Urine Glucose (UA) 3+ (NEGATIVE) 12/20/18 21:12 Urine Ketones Negative (NEGATIVE) 12/20/18 21:12 Urine Occult Blood 1+ (NEGATIVE) 12/20/18 21:12 Urine Nitrite Positive (NEGATIVE) 12/20/18 21:12 Urine Bilirubin Negative (NEGATIVE) 12/20/18 21:12 Urine Urobilinogen Normal (NORMAL) 12/20/18 21:12 Ur Leukocyte Esterase 2+ (NEGATIVE) 12/20/18 21:12 Urine RBC 0-2 /HPF (NONE SEEN) 12/20/18 21:12 Urine WBC 5-10 /HPF (NONE SEEN) 12/20/18 21:12 Ur Squamous Epith Cells Few /HPF (NEGATIVE) 12/20/18 21:12 Urine Bacteria 1+ /HPF (NEGATIVE) 12/20/18 21:12 Ur Culture Indicated? Yes/culture set up 12/20/18 21:12 - Plan (1) Urinary tract infection Status: Acute Qualifiers: Urinary tract infection type: acute cystitis Hematuria presence: without hematuria Qualified Code(s): N30.00 - Acute cystitis without hematuria Plan: INVANZ 1GM IV DAILY, CONTINUE TO MONITOR (2) Generalized weakness Status: Acute (3) Unsteady gait Status: Acute (4) Abdominal pain Status: Acute Qualifiers: Abdominal location: right upper quadrant Qualified Code(s): R10.11 - Right upper quadrant pain Plan: OBTAIN HIDA SCAN, CONTINUE TO MONITOR (5) Altered mental status Status: Acute Qualifiers: Altered mental status type: transient alteration of awareness (6) Nausea & vomiting Status: Acute Qualifiers: Vomiting type: unspecified Vomiting Intractability: non-intractable Qualified Code(s): R11.2 - Nausea with vomiting, unspecified Plan: OBTAIN HIDA SCAN, CONTINUE TO MONITOR
[2018-12-23] MEDS: ATIVAN TAB 1 MG PO SCH ×2 (09:41→21:05)
[2018-12-23] MEDS: PROzac PO SCH (09:41)
[2018-12-23] MEDS: GLUCOPHAGE PO SCH ×2 (09:41→21:04)
[2018-12-23] MEDS: AMARYL TAB 4 MG PO SCH (09:41)
[2018-12-23] MEDS: TOPROL XL PO SCH (09:41)
[2018-12-23] MEDS: INVANZ INJ 1 GM VIAL 1 GM in NS 100 ML IV + SPIKE MINIBAG* 100 ML IV SCH (09:45)
--- NOTE | 2018-12-23 14:09 | NM ---
HIDA SCAN WITH EJECTION FRACTION. HISTORY: Abdominal pain Comparison: None Technique: Multiple scintigraphic images of the abdomen were obtained the intravenous administration of 5.5 mCi of technetium labeled Choletec. Following distention of the gallbladder with radiotracer 8 oz ensure was given. An estimated gallbladder ejection fraction was calculated. Findings: Homogeneous uptake of radiotracer is seen throughout the liver. The intrabiliary ductal system is observed normally. The common hepatic and common bile duct appear unremarkable with normal biliary-bowel transit. The gallbladder is observed to fill normally. A decreased gallbladder ejection fraction of 12.3% (normal > 35%) is observed. IMPRESSION: 1. No evidence of cystic duct obstruction 2. Decreased gallbladder ejection fraction of %. Reported By:
--- NOTE | 2018-12-23 16:40 | PCM.PROG ---
Progress Note - Progress Note for Day of Date of Exam: 12/23/18 - Subjective Subjective: IS BEING TREATED FOR WEAKNESS, UNSTEADY GAIT, ALTERED MENTAL STATUS, NAUSEA, AND UTI. HE CONTINUES WITH COMPLAINTS OF WEAKNESS, UNSTEADY GAIT, AND MILD ABDOMINAL PAIN TODAY. HE REPORTS THAT SYMPTOMS ARE WORSE AFTER EATING. HIS VITALS THIS MORNING ARE 97.8-65-18-94%-169/74. LABS WERE OBTAINED. ABNORMAL LAB VALUES INCLUDE THE FOLLOWING: RBC 3.27, HGB 9.4, HCT 28.4, CHLORIDE 110, GLUCOSE 113, CALCIUM 8.0, TOTAL PROTEIN 5.6, ALBUMIN 2.4. URINE CULTURE POSITIVE FOR GROWTH OF E.COLI. WE PLAN TO OBTAIN A HIDA SCAN THIS MORNING. HE IS CURRENTLY RECEIVING INVANZ 1 GRAM IV DAILY AND NORMAL SALINE WITH MVI IN EACH LITER. WE WILL CONTINUE WITH CURRENT PLAN OF CARE TODAY. WE PLAN TO FOLLOW UP WITH AM LABS AND CONTINUE TO MONITOR. - Past Medical Family Social History Past Med/Fam/Surg Hx: No changes since H&P Allergies: Allergies Sulfa (Sulfonamide Antibiotics) [SULFA] Allergy (Verified 10/20/18 17:57) - Review of Systems ROS: No change since H&P - Vital Signs and I&O's Vital Signs: Temperature 98.1 F Pulse Rate [Left Brachial] 62 Respiratory Rate 18 Blood Pressure [Right Arm] 145/74 Blood Pressure [Left Arm] 116/56 Blood Pressure 123/58 O2 Sat by Pulse Oximetry 95 Intake and Output: Intake & Output 12/21/18 12/22/18 12/23/18 12/24/18 11:59 11:59 11:59 11:59 Intake Total 1670 / 1670 3210 / 3210 2220 / 2220 0 / 0 Output Total 100 / 100 Balance 1570 / 1570 3210 / 3210 2220 / 2220 0 / 0 - Physical Exam Oriented: Normal Eyes: Normal Ear: Normal Nose: Normal Throat: Normal Respiratory: Generalized, Diminished Cardiovascular: Normal. negative: S3, Murmur, Edema : Normal Auscultation: Bowel Sounds: Normal Palpation: Normal Tenderness: RUQ, Mild. negative: Rebound, Guarding, Rigidity Skin: Normal Musculoskeletal: Normal Psychiatric: Normal Mood Description: Calm Affect: Normal Speech Pattern: Clear, Appropriate - Laboratory and Diagnostics Result Diagrams: 12/23/18 04:40 12/23/18 04:40 Labs: 12/20/18 21:12 Urine,Clean Catch Urine Culture - Final Escherichia Coli Laboratory WBC 5.5 X10^3/uL (3.6-10.0) 12/23/18 04:40 RBC 3.27 X10^6/uL (4.7-6.0) L 12/23/18 04:40 Hgb 9.4 g/dL (13.5-18.0) L 12/23/18 04:40 Hct 28.4 % (42.0-54.0) L 12/23/18 04:40 MCV 86.7 fL (80.0-100.0) 12/23/18 04:40 MCH 28.7 pg (27.0-34.0) 12/23/18 04:40 MCHC 33.1 g/dL (33.0-35.0) 12/23/18 04:40 RDW 14.4 % (11.6-16.5) 12/23/18 04:40 Plt Count 195 X10^3/uL (150.0-450.0) 12/23/18 04:40 Plt Count Comment Adequate (ADEQUATE) 12/22/18 04:35 MPV 8.0 fL (7.4-11.0) 12/23/18 04:40 Neut % (Auto) 60.5 % (42.0-75.0) 12/23/18 04:40 Lymph % (Auto) 27.1 % (21.0-51.0) 12/23/18 04:40 [place] % (Auto) 8.4 % (0.0-13.0) 12/23/18 04:40 Eos % (Auto) 3.4 % (0.9-2.9) H 12/23/18 04:40 Baso % (Auto) 0.6 % (0.2-1.0) 12/23/18 04:40 Neut # (Auto) 3.3 x10^3/uL (2.2-4.8) 12/23/18 04:40 Lymph # (Auto) 1.5 X10^3/uL (1.3-2.9) 12/23/18 04:40 [place] # (Auto) 0.5 x10^3/uL (0.3-0.8) 12/23/18 04:40 Eos # (Auto) 0.2 x10^3/uL (0.0-0.2) 12/23/18 04:40 Baso # (Auto) 0.0 X10^3/uL (0.0-0.1) 12/23/18 04:40 Absolute Nucleated RBC 0.0 /100WBC 12/23/18 04:40 Total Counted 100 12/22/18 04:35 Neutrophils % (Manual) 59 % (39-76) 12/22/18 04:35 Band Neutrophils % 4 % (0-10) 12/22/18 04:35 Lymphocytes % (Manual) 28 % (13-43) 12/22/18 04:35 Monocytes % (Manual) 6 % (4-9) 12/22/18 04:35 Eosinophils % (Manual) 3 % (0-6) 12/22/18 04:35 Plt Morphology Comment Normal (NORMAL) 12/22/18 04:35 RBC Morphology Normal (NORMAL) 12/22/18 04:35 Sodium 142 mmol/L (136-145) 12/23/18 04:40 Corrected Sodium 142 mmol/L (136-145) 12/23/18 04:40 Potassium 3.8 mmol/L (3.5-5.1) 12/23/18 04:40 Chloride 110 mmol/L (98-107) H 12/23/18 04:40 Carbon Dioxide 23.2 mmol/L (21-32) 12/23/18 04:40 BUN 10 mg/dL (7-18) 12/23/18 04:40 Creatinine 1.20 mg/dL (0.70-1.30) 12/23/18 04:40 Est GFR (MDRD) Af Amer > 60 (>60) 12/23/18 04:40 Est GFR (MDRD) Non-Af > 60 (>60) 12/23/18 04:40 Glucose 113 mg/dL (65-99) H 12/23/18 04:40 POC Glucose (mg/dL) 98 mg/dL (65-99) 12/23/18 11:33 Calcium 8.0 mg/dL (8.5-10.1) L 12/23/18 04:40 Corrected Calcium 9.3 mg/dL (8.5-10.1) 12/23/18 04:40 Total Bilirubin 0.20 mg/dL (0.2-1.0) 12/23/18 04:40 AST 17 Units/L (15-37) 12/23/18 04:40 ALT 21 Units/L (12-78) 12/23/18 04:40 Alkaline Phosphatase 60 Units/L (46-116) 12/23/18 04:40 Total Protein 5.6 g/dL (6.4-8.2) L 12/23/18 04:40 Albumin 2.4 g/dL (3.4-5.0) L 12/23/18 04:40 Globulin 3.2 g/dL (2.5-4.5) 12/23/18 04:40 Albumin/Globulin Ratio 0.8 Ratio (1.1-2.1) L 12/23/18 04:40 Specimen Type Clean catch urine 12/20/18 21:12 Urine Color Yellow (YELLOW) 12/20/18 21:12 Urine Appearance Hazy (CLEAR) 12/20/18 21:12 Urine pH 5.0 (5.0 - 8.0) 12/20/18 21:12 Ur Specific [place] 1.020 (1.000-1.030) 12/20/18 21:12 Urine Protein 2+ (NEGATIVE) 12/20/18 21:12 Urine Glucose (UA) 3+ (NEGATIVE) 12/20/18 21:12 Urine Ketones Negative (NEGATIVE) 12/20/18 21:12 Urine Occult Blood 1+ (NEGATIVE) 12/20/18 21:12 Urine Nitrite Positive (NEGATIVE) 12/20/18 21:12 Urine Bilirubin Negative (NEGATIVE) 12/20/18 21:12 Urine Urobilinogen Normal (NORMAL) 12/20/18 21:12 Ur Leukocyte Esterase 2+ (NEGATIVE) 12/20/18 21:12 Urine RBC 0-2 /HPF (NONE SEEN) 12/20/18 21:12 Urine WBC 5-10 /HPF (NONE SEEN) 12/20/18 21:12 Ur Squamous Epith Cells Few /HPF (NEGATIVE) 12/20/18 21:12 Urine Bacteria 1+ /HPF (NEGATIVE) 12/20/18 21:12 Ur Culture Indicated? Yes/culture set up 12/20/18 21:12 - Plan (1) Urinary tract infection Status: Acute Qualifiers: Urinary tract infection type: acute cystitis Hematuria presence: without hematuria Qualified Code(s): N30.00 - Acute cystitis without hematuria Plan: INVANZ 1GM IV DAILY, CONTINUE TO MONITOR (2) Generalized weakness Status: Acute (3) Unsteady gait Status: Acute (4) Abdominal pain Status: Acute Qualifiers: Abdominal location: right upper quadrant Qualified Code(s): R10.11 - Right upper quadrant pain Plan: OBTAIN HIDA SCAN, CONTINUE TO MONITOR (5) Altered mental status Status: Acute Qualifiers: Altered mental status type: transient alteration of awareness (6) Nausea & vomiting Status: Acute Qualifiers: Vomiting type: unspecified Vomiting Intractability: non-intractable Qualified Code(s): R11.2 - Nausea with vomiting, unspecified Plan: OBTAIN HIDA SCAN, CONTINUE TO MONITOR
[2018-12-23] MEDS ORDERED: GLUCOPHAGE ONE (20:02)
[2018-12-23] MEDS: RESTORIL CAP 15 MG PO SCH (21:04)
[2018-12-23] MEDS: SNACK - Diabetic Appropriate PO SCH (21:05)
[2018-12-23] MEDS: ZOCOR TAB 20 MG PO SCH (21:05)
[2018-12-24 05:29] LABS: BASOPHILS % (AUTO) 0.7 % (0.2-1.0); EOSINOPHILS # (AUTO) 0.1 x10^3/uL (0.0-0.2); EOSINOPHILS % (AUTO) 2.4 % (0.9-2.9); HEMATOCRIT 26.9 % (42.0-54.0); HEMOGLOBIN 9.1 g/dL (13.5-18.0); LYMPHOCYTES # (AUTO) 1.2 X10^3/uL (1.3-2.9); LYMPHOCYTES % (AUTO) 23.9 % (21.0-51.0); MEAN CORPUSCULAR HEMOGLOBIN 29.2 pg (27.0-34.0); MEAN CORPUSCULAR HGB CONC 33.7 g/dL (33.0-35.0); MEAN CORPUSCULAR VOLUME 86.5 fL (80.0-100.0); MEAN PLATELET VOLUME 7.9 fL (7.4-11.0); MONOCYTES # (AUTO) 0.5 x10^3/uL (0.3-0.8); MONOCYTES % (AUTO) 11.3 % (0.0-13.0); NEUTROPHILS % (AUTO) 61.7 % (42.0-75.0); PLATELET COUNT 201 X10^3/uL (150.0-450.0); RED BLOOD COUNT 3.11 X10^6/uL (4.7-6.0); RED CELL DISTRIBUTION WIDTH 14.5 % (11.6-16.5); WHITE BLOOD COUNT 4.8 X10^3/uL (3.6-10.0)
[2018-12-24] MEDS: NORCO 7.5/325 MG TAB PO SCH (05:45)
[2018-12-24 05:55] LABS: ALANINE AMINOTRANSFERASE 18 Units/L (12-78); ALBUMIN 2.3 g/dL (3.4-5.0); ALKALINE PHOSPHATASE 58 Units/L (46-116); ASPARTATE AMINO TRANSFERASE 13 Units/L (15-37); BLOOD UREA NITROGEN 8 mg/dL (7-18); CARBON DIOXIDE 23.5 mmol/L (21-32); CHLORIDE 110 mmol/L (98-107); COR CA(FOR HYPOALB) 9.4 mg/dL (8.5-10.1); COR NA(FOR HYPERGLY) 142 mmol/L (136-145); CREATININE 1.16 mg/dL (0.70-1.30); SODIUM 142 mmol/L (136-145); TOTAL PROTEIN 5.4 g/dL (6.4-8.2); eGFR NON BLACK RACES > 60 (>60)
[2018-12-24] MEDS: NS 1000 ML 1,000 ML with MVI INJ (ADULT) 1 ML IV SCH ×2 (06:08)
[2018-12-24] MEDS ORDERED: K-RIDER 10 MEQ/NS 100 ML 10 MEQ/100 ML BAG IV PRN (06:40)
[2018-12-24] MEDS ORDERED: MICRO K EXTEN CAP 10 MEQ PO PRN (06:40)
[2018-12-24] MEDS ORDERED: POTASSIUM CHL 60 MEQ/NS 0.45% 500 ML IV PRN (06:40)
[2018-12-24] MEDS ORDERED: K-DUR TAB 20 MEQ PO PRN (06:40)
[2018-12-24] MEDS ORDERED: POTASSIUM CHLORIDE LIQ 20 MEQ UDC PO PRN (06:40)
[2018-12-24] MEDS ORDERED: KLOR-CON PO PRN (06:40)
[2018-12-24] MEDS ORDERED: POTASSIUM CHL 40 MEQ/NS 0.45% 500 ML IV PRN (06:40)
[2018-12-24] MEDS ORDERED: MAGNESIUM SULFATE 1 GRAM/100 mL PREMIX 1 GM/100 ML BAG IV PRN (06:40)
[2018-12-24 07:21] LABS: PLATELET MORPHOLOGY COMMENT NORMAL (NORMAL)
[2018-12-24] MEDS ORDERED: GLUCOPHAGE ONE (08:27)
[2018-12-24] MEDS: ATIVAN TAB 1 MG PO SCH (08:34)
[2018-12-24] MEDS: AMARYL TAB 4 MG PO SCH (08:34)
[2018-12-24] MEDS: PROzac PO SCH (08:34)
[2018-12-24] MEDS: INVANZ INJ 1 GM VIAL 1 GM in NS 100 ML IV + SPIKE MINIBAG* 100 ML IV SCH (08:35)
[2018-12-24] MEDS: TOPROL XL PO SCH (08:35)
[2018-12-24] MEDS: GLUCOPHAGE PO SCH (08:35)
[2018-12-24 09:23] VITALS: BP 168/77
== END 2018-12-24 11:55 | disposition home or self-care (01) | DRG 690 ==
LOC: MED/SURG
PROVIDERS: ADMIT Internal Medicine; ATTEND Internal Medicine
DX: R11.2 Nausea with vomiting, unspecified; E11.65 Type 2 diabetes mellitus with hyperglycemia; R26.81 Unsteadiness on feet; R94.4 Abnormal results of kidney function studies; R53.1 Weakness; B96.29 Other Escherichia coli [E. coli] as the cause of diseases classified elsewhere; R10.11 Right upper quadrant pain; G47.09 Other insomnia; E78.2 Mixed hyperlipidemia; R06.02 Shortness of breath; R41.82 Altered mental status, unspecified; M51.17 Intervertebral disc disorders with radiculopathy, lumbosacral region; N30.00 Acute cystitis without hematuria
CPT/HCPCS: 36415; 70450; 71020; 71046; 76705; 78227; 80053; 81001; 83735; 85025; 87086; 87088; 87186; 94760; 97161; 97166; A4216; A4222; G0378; J0696; J1335; J1815; J7030; J7050